=== PATIENT | female | born 1945 | race Caucasian/White ===

== ENCOUNTER → 2020-07-26 12:09 | Outpatient (CLI) | payer MEDICARE, SELFPAY ==
[2020-07-26 13:00] LABS: Absolute Lymphocyte Count 1.39 X10^3/uL (0.83-4.51); Absolute Neutrophil Count 4.9 X10^3/uL (2.0-7.7); Basophil# 0.05 X10^3/uL; Basophil% 0.7 % (0-1); Eosinophil# 0.06 X10^3/uL; Eosinophils% 0.9 % (0-5); Hematocrit 41.6 % (37-47); Hemoglobin 13.3 g/dL (12.0-15.0); Lymphocyte # 1.39 X10^3/ul (0.83-4.51); Lymphocyte % 20.2 % (19-41); Mean Corpuscular Hgb 29.7 pg (27.0-32.0); Mean Corpuscular Volume 92.9 fL (81-99); Mean Platelet Vol. 10.1 fl (6.2-12.0); Monocyte# 0.49 X10^3/uL; Monocyte% 7.1 % (0-10); NRBC Flagged by Analyzer 0 % (0-5); Neutrophil # 4.87 X10^3/uL (2.7-7.7); Platelet Count 252 K/mm3 (150-450); RBC Distribution Width CV 11.9 % (11.6-14.6); Red Blood Count 4.48 M/mm3 (4.2-5.4); White Blood Count 6.9 K/mm3 (4.4-11.0)
[2020-07-26 13:31] LABS: ALB/GLOB Ratio 1.2 RATIO (0.9-2.4); AST(SGOT) 16 U/L (15-37); Alanine Aminotransfer ALT/SGPT 22 U/L (13-56); Albumin, Serum 4.2 g/dL (3.2-5.0); Alkaline Phosphatase 68 U/L (45-117); Anion Gap 5 (5-15); BUN 11 mg/dL (7-18); BUN/Creat Ratio 16.2 RATIO (10-20); Calcium,Total 9.2 mg/dL (8.5-10.1); Chloride 103 mmol/L (98-107); Cholesterol 198 mg/dL (200); Creatinine, Serum 0.68 mg/dL (0.55-1.02); EST Glomerular Filtration Rate 90 mL/min (>60); Est Glom Filt Rate - Afr Amer 109 mL/min (>60); Globulin 3.5 g/dL (2.2-4.2); Glucose 96 mg/dL (74-106); High Density Lipoprotein 86 mg/dL; Potassium 3.4 mmol/L (3.5-5.1); Protein, Total 7.7 g/dL (6.4-8.2); Sodium Level 139 mmol/L (136-145); Thyroid Stim Hormone (TSH) 0.88 uIU/mL (0.358-3.74); Triglycerides 49 mg/dL; Very Low Density Lipoprotein 10 mg/dL (5-40)
[2020-07-26 14:02] LABS: Hepatitis C Antibody Non-Reactive (Nonreactive); Vitamin D,25 Hydroxy 10.9 ng/mL
== END ==
PROVIDERS: PCP Family Medicine Geriatric Medicine; Visit Provider Family Medicine Geriatric Medicine
DX: E55.9 Vitamin D deficiency, unspecified (principal); I10 Essential (primary) hypertension; Z13.89 Encounter for screening for other disorder
CPT/HCPCS: 36415; 80053; 80061; 82306; 84443; 85025; 86803

== ENCOUNTER → 2020-08-02 10:10 | Outpatient (CLI) | payer MEDICARE, SELFPAY ==
[2020-08-02 12:39] LABS: Anion Gap 6 (5-15); BUN 13 mg/dL (7-18); BUN/Creat Ratio 16.5 RATIO (10-20); Calcium,Total 9.2 mg/dL (8.5-10.1); Chloride 103 mmol/L (98-107); Creatinine, Serum 0.79 mg/dL (0.55-1.02); EST Glomerular Filtration Rate 76 mL/min (>60); Est Glom Filt Rate - Afr Amer 92 mL/min (>60); Glucose 131 mg/dL (74-106); Potassium 3.5 mmol/L (3.5-5.1); Sodium Level 140 mmol/L (136-145)
== END ==
PROVIDERS: PCP Family Medicine Geriatric Medicine; Visit Provider Family Medicine Geriatric Medicine
DX: E87.6 Hypokalemia (principal)
CPT/HCPCS: 36415; 80048

== ENCOUNTER → 2020-08-09 08:14 | Outpatient (CLI) | payer MEDICARE, SELFPAY ==
--- NOTE | 2020-08-09 08:18 | AAVD_ITS ---
Reason For Study: AAA w/o rupture Aorta Measurements Aorta Doppler Measurements Proximal aorta measures2.04 x 2.00cm. in cross- Peak systolic flow velocities within the proximal sectional axis. aorta measure 94.1 cm/sec. Proximal aorta measures2.04cm. in longitudinal Peak systolic flow velocities within the mid aorta axis. measure 76.9 cm/sec. Mid aorta measures1.93 x 1.94cm. in cross- Peak systolic flow velocities within the distal sectional axis. aorta measure 84.2 cm/sec. Mid aorta measures1.92cm. in longitudinal axis. Distal aorta measures1.75 x 1.74cm. in cross- sectional axis. Distal aorta measures1.72cm. in longitudinal axis. Left Iliac Artery Left iliac artery measures 1.04 x 1.08 cm. in the cross-sectional axis. Left iliac artery measures 1.04 cm. in the longitudinal axis. Peak systolic velocity in the left iliac artery measures 103.4 cm/sec. Right Iliac Artery Right iliac artery measures 1.11 x 1.13 cm. in the cross-sectional axis. Right iliac artery measures 1.10 cm. in the longitudinal axis. Peak systolic velocity in the right iliac artery measures 79.3 cm/sec. Procedure Aorta IVC Iliac vasculature or bypass grafts 43247. Exam performed in department. VL/Abd Aortic/IVC Duplex scan Interpretation Summary The intra-abdominal aorta appears normal in size bilaterally, without evidence of aneurysmal dilatation. The iliac arteries appear normal in caliber bilaterally. The intra- abdominal aorta and iliac arteries are patent, demonstrating normal, pulsatile arterial flow and no rmal peak systolic velocities. Ordering Physician: Oskar Kinsey Referring Physician: Oskar Kinsey Chi Performed By: Kanika Lafleur RVT
== END ==
PROVIDERS: PCP Family Medicine Geriatric Medicine; Referring Provider Family Medicine Geriatric Medicine; Visit Provider Family Medicine Geriatric Medicine
DX: I71.4 Abdominal aortic aneurysm, without rupture (principal)
CPT/HCPCS: 93978

== ENCOUNTER → 2020-08-10 08:14 | Outpatient (CLI) | payer MEDICARE, SELFPAY ==
--- NOTE | 2020-08-10 08:17 | BD_ITS ---
STUDY: DUAL ENERGY X-RAY ABSORPTIOMETRY / DXA REASON FOR EXAM: Female, 74 years old. [id number]. The patient is postmenopausal. TECHNIQUE: Bone Mineral Density (BMD) measurements of lumbar spine and bilateral hips were obtained. COMPARISON: None. FINDINGS: Lumbar Spine (L1-L4): g/cm2 (0.890) / T-score (-2.4) / Z-score (-0.7) Findings are suggestive of osteopenia with a low fracture risk. Left Femur Total: g/cm2 (0.744) / T-score (-2.1) / Z-score (-0.5) Left Femoral Neck: g/cm2 (0.763) / T-score (-2.0) / Z-score (-0.2) Right Femur Total: g/cm2 (0.759) / T-score (-2.0) / Z-score (-0.4) Right Femoral Neck: g/cm2 (0.758) / T-score (-2.0) / Z-score (0.2) BD/Dexa Bone Density Study IMPRESSION: The patient is considered osteopenic as outlined below according to World Lenin Organization (WHO) criteria with a high fracture risk. Reference Information: The T-score is the number of standard deviations above or below the standard which is normal for young adults at their peak bone mineral density. The World Health Organization (WHO) interprets the T-scores as follows: Above -1 Normal bone density Between -1 and -2.5 Osteopenia Equal to / or below -2.5 Osteoporosis As a practical clinical guideline, osteopenia may be graded as follows: Mild -1 through -1.5 Moderate -1.6 through -2.0 Severe -2.1 through -2.4 The Z-score is the number of standard deviations above or below age-matched controls. A Z-score of less than -1.5 would be considered abnormal. References: 1. NIH Osteoporosis and Related Bone Diseases www osteo.org 2. International Society for Clinical Densitometry www iscd.org 3. National Osteoporosis Foundation www nof.org Electronically Signed: Arnulfo Gray MD at 12:54 EDT , Service support ,
--- NOTE | 2020-08-10 08:17 | BI_ITS ---
MAMMOGRAPHY - BILATERAL SCREENING REASON FOR EXAM: Female, 74 years old. Routine annual screening examination. PERTINENT HISTORY: Non-contributory. TECHNIQUE: Digital bilateral breast clayton (3D mammographic acquisition) in the CC and MLO projections. 2-D mediolateral oblique (MLO) and craniocaudad (CC) views of both breasts were obtained. CAD: Full Field Digital Mammography with Computer Added Detection was performed. COMPARISON: Comparison is made with prior outside examination dated 03/09/2019. FINDINGS: Breast Composition: The breasts are heterogeneously dense, which may obscure small masses. There are no dominant masses or suspicious calcifications. No other significant abnormalities are identified. There has been no significant change since the prior study. BI/SCRN MAMM (CAD)W/CLAYTON BILAT IMPRESSION: Stable bilateral screening mammogram. Yearly follow-up mammogram recommended. (A) ASSESSMENT CATEGORY: BIRADS Category 1: Negative. A letter regarding these results will be sent to the patient by the facility within 30 days. Approximately 10% of breast cancers are not detected by mammography. A normal mammogram should not delay biopsy of a clinically suspicious abnormality. [id number] Electronically Signed: Arnulfo Gray MD at 9:58 EDT , Service support ,
== END ==
PROVIDERS: PCP Family Medicine Geriatric Medicine; Referring Provider Family Medicine Geriatric Medicine; Visit Provider Family Medicine Geriatric Medicine
DX: Z78.0 Asymptomatic menopausal state (principal); Z12.31 Encounter for screening mammogram for malignant neoplasm of breast
CPT/HCPCS: 77063; 77067; 77080

== ENCOUNTER → 2020-09-15 14:02 | Outpatient (CLI) | payer MEDICARE, SELFPAY ==
[2020-09-15 15:42] LABS: Absolute Neutrophil Count 3.8 X10^3/uL (2.0-7.7); Basophil# 0.06 X10^3/uL; Eosinophils% 1.7 % (0-5); Hematocrit 38.3 % (37-47); Hemoglobin 12.6 g/dL (12.0-15.0); Lymphocyte % 22.7 % (19-41); Mean Corp Hgb Conc 32.9 g/dL (32-36); Mean Corpuscular Hgb 30.4 pg (27.0-32.0); Mean Corpuscular Volume 92.5 fL (81-99); Mean Platelet Vol. 10.3 fl (6.2-12.0); Monocyte# 0.45 X10^3/uL; Monocyte% 7.9 % (0-10); NRBC Flagged by Analyzer 0 % (0-5); Neutrophil # 3.79 X10^3/uL (2.7-7.7); Neutrophil % 66.4 % (47-70); Platelet Count 263 K/mm3 (150-450); RBC Distribution Width CV 12.1 % (11.6-14.6); RBC Distribution Width SD 41.3 fl (35.1-43.9); Red Blood Count 4.14 M/mm3 (4.2-5.4); White Blood Count 5.7 K/mm3 (4.4-11.0)
[2020-09-15 15:58] LABS: Anion Gap 6 (5-15); BUN 10 mg/dL (7-18); BUN/Creat Ratio 14.8 RATIO (10-20); Calcium,Total 9.1 mg/dL (8.5-10.1); Chloride 102 mmol/L (98-107); Creatinine, Serum 0.68 mg/dL (0.55-1.02); EST Glomerular Filtration Rate 91 mL/min (>60); Est Glom Filt Rate - Afr Amer 110 mL/min (>60); Glucose 103 mg/dL (74-106); Potassium 3.7 mmol/L (3.5-5.1); Sodium Level 139 mmol/L (136-145)
== END ==
PROVIDERS: PCP Family Medicine Geriatric Medicine; Visit Provider Family Medicine Geriatric Medicine
DX: E87.6 Hypokalemia (principal)
CPT/HCPCS: 36415; 80048; 85025

== ENCOUNTER → 2020-09-22 09:49 | Outpatient (CLI) | payer MEDICARE, SELFPAY ==
[2020-09-22 12:41] LABS: Anion Gap 7 (5-15); BUN 13 mg/dL (7-18); BUN/Creat Ratio 17.9 RATIO (10-20); Calcium,Total 9.1 mg/dL (8.5-10.1); Chloride 98 mmol/L (98-107); Creatinine, Serum 0.73 mg/dL (0.55-1.02); EST Glomerular Filtration Rate 83 mL/min (>60); Est Glom Filt Rate - Afr Amer 101 mL/min (>60); Glucose 93 mg/dL (74-106); Potassium 3.7 mmol/L (3.5-5.1); Sodium Level 137 mmol/L (136-145)
== END ==
PROVIDERS: PCP Family Medicine Geriatric Medicine; Visit Provider Family Medicine Geriatric Medicine
DX: I10 Essential (primary) hypertension (principal)
CPT/HCPCS: 36415; 80048

== ENCOUNTER → 2020-10-26 09:22 | Outpatient (CLI) | payer MEDICARE, SELFPAY ==
[2020-10-26 12:41] LABS: Absolute Lymphocyte Count 1.69 X10^3/uL (0.83-4.51); Absolute Neutrophil Count 3.4 X10^3/uL (2.0-7.7); Basophil# 0.06 X10^3/uL; Eosinophil# 0.12 X10^3/uL; Eosinophils% 2.1 % (0-5); Hematocrit 39.3 % (37-47); Lymphocyte # 1.69 X10^3/ul (0.83-4.51); Lymphocyte % 29.5 % (19-41); Mean Corp Hgb Conc 33.1 g/dL (32-36); Mean Corpuscular Hgb 30.9 pg (27.0-32.0); Mean Corpuscular Volume 93.3 fL (81-99); Mean Platelet Vol. 10.1 fl (6.2-12.0); Monocyte# 0.45 X10^3/uL; Monocyte% 7.9 % (0-10); NRBC Flagged by Analyzer 0 % (0-5); Neutrophil # 3.39 X10^3/uL (2.7-7.7); Neutrophil % 59.2 % (47-70); Platelet Count 277 K/mm3 (150-450); RBC Distribution Width SD 41.4 fl (35.1-43.9); Red Blood Count 4.21 M/mm3 (4.2-5.4); White Blood Count 5.7 K/mm3 (4.4-11.0)
[2020-10-26 13:18] LABS: ALB/GLOB Ratio 1.2 RATIO (0.9-2.4); AST(SGOT) 20 U/L (15-37); Alanine Aminotransfer ALT/SGPT 30 U/L (13-56); Alkaline Phosphatase 53 U/L (45-117); Anion Gap 6 (5-15); BUN 13 mg/dL (7-18); BUN/Creat Ratio 20.3 RATIO (10-20); Calcium,Total 8.9 mg/dL (8.5-10.1); Chloride 98 mmol/L (98-107); Cholesterol 185 mg/dL (200); Creatinine, Serum 0.64 mg/dL (0.55-1.02); EST Glomerular Filtration Rate 97 mL/min (>60); Est Glom Filt Rate - Afr Amer 117 mL/min (>60); Globulin 3.2 g/dL (2.2-4.2); Glucose 84 mg/dL (74-106); High Density Lipoprotein 71 mg/dL; Potassium 3.8 mmol/L (3.5-5.1); Protein, Total 7.2 g/dL (6.4-8.2); Sodium Level 135 mmol/L (136-145); Thyroid Stim Hormone (TSH) 1.11 uIU/mL (0.358-3.74); Triglycerides 67 mg/dL; Very Low Density Lipoprotein 13 mg/dL (5-40)
[2020-10-26 13:21] LABS: Vitamin D,25 Hydroxy 35.3 ng/mL
== END ==
PROVIDERS: PCP Family Medicine Geriatric Medicine; Visit Provider Family Medicine Geriatric Medicine
DX: I10 Essential (primary) hypertension (principal); E78.5 Hyperlipidemia, unspecified; E55.9 Vitamin D deficiency, unspecified
CPT/HCPCS: 36415; 80053; 80061; 82306; 84443; 85025

== ENCOUNTER → 2021-01-25 10:25 | Outpatient (CLI) | payer MEDICARE, SELFPAY ==
[2021-01-25 12:27] LABS: Absolute Lymphocyte Count 1.44 X10^3/uL (0.83-4.51); Absolute Neutrophil Count 4.7 X10^3/uL (2.0-7.7); Basophil# 0.06 X10^3/uL; Basophil% 0.9 % (0-1); Eosinophil# 0.14 X10^3/uL; Eosinophils% 2.1 % (0-5); Hematocrit 36.9 % (37-47); Hemoglobin 12.2 g/dL (12.0-15.0); Lymphocyte # 1.44 X10^3/ul (0.83-4.51); Lymphocyte % 21.2 % (19-41); Mean Corp Hgb Conc 33.1 g/dL (32-36); Mean Corpuscular Hgb 31.5 pg (27.0-32.0); Mean Corpuscular Volume 95.3 fL (81-99); Monocyte# 0.47 X10^3/uL; Monocyte% 6.9 % (0-10); NRBC Flagged by Analyzer 0 % (0-5); Neutrophil # 4.67 X10^3/uL (2.7-7.7); Neutrophil % 68.6 % (47-70); Platelet Count 277 K/mm3 (150-450); RBC Distribution Width CV 12.5 % (11.6-14.6); RBC Distribution Width SD 43.8 fl (35.1-43.9); Red Blood Count 3.87 M/mm3 (4.2-5.4); White Blood Count 6.8 K/mm3 (4.4-11.0)
[2021-01-25 12:54] LABS: Vitamin D,25 Hydroxy 26.6 ng/mL
[2021-01-25 13:18] LABS: AST(SGOT) 21 U/L (15-37); Alanine Aminotransfer ALT/SGPT 31 U/L (13-56); Albumin, Serum 3.7 g/dL (3.2-5.0); Alkaline Phosphatase 60 U/L (45-117); Anion Gap 7 (5-15); BUN 18 mg/dL (7-18); BUN/Creat Ratio 23.1 RATIO (10-20); Calcium,Total 9.3 mg/dL (8.5-10.1); Chloride 100 mmol/L (98-107); Cholesterol 185 mg/dL (200); Creatinine, Serum 0.78 mg/dL (0.55-1.02); EST Glomerular Filtration Rate 77 mL/min (>60); Est Glom Filt Rate - Afr Amer 93 mL/min (>60); Globulin 3.7 g/dL (2.2-4.2); Glucose 147 mg/dL (74-106); High Density Lipoprotein 69 mg/dL; Potassium 3.5 mmol/L (3.5-5.1); Protein, Total 7.4 g/dL (6.4-8.2); Sodium Level 136 mmol/L (136-145); Thyroid Stim Hormone (TSH) 0.88 uIU/mL (0.358-3.74); Triglycerides 136 mg/dL; Very Low Density Lipoprotein 27 mg/dL (5-40)
[2021-01-26 14:13] LABS: Hemoglobin A1c 5.2 % (3.8-5.6)
== END ==
PROVIDERS: PCP Family Medicine Geriatric Medicine; Visit Provider Family Medicine Geriatric Medicine
DX: E55.9 Vitamin D deficiency, unspecified (principal); E78.5 Hyperlipidemia, unspecified; R73.9 Hyperglycemia, unspecified; I10 Essential (primary) hypertension
CPT/HCPCS: 36415; 80053; 80061; 82306; 83036; 84443; 85025

== ENCOUNTER 2021-04-25 10:22 | Outpatient (CLI) | payer MEDICARE, SELFPAY ==
[2021-04-25 12:16] LABS: Absolute Lymphocyte Count 1.78 X10^3/uL (0.83-4.51); Absolute Neutrophil Count 3.7 X10^3/uL (2.0-7.7); Basophil# 0.06 X10^3/uL; Eosinophil# 0.11 X10^3/uL; Eosinophils% 1.8 % (0-5); Hematocrit 38.4 % (37-47); Lymphocyte # 1.78 X10^3/ul (0.83-4.51); Mean Corp Hgb Conc 33.9 g/dL (32-36); Mean Corpuscular Hgb 31.3 pg (27.0-32.0); Mean Corpuscular Volume 92.5 fL (81-99); Monocyte# 0.45 X10^3/uL; Monocyte% 7.3 % (0-10); NRBC Flagged by Analyzer 0 % (0-5); Neutrophil % 60.4 % (47-70); Platelet Count 280 K/mm3 (150-450); RBC Distribution Width CV 11.9 % (11.6-14.6); RBC Distribution Width SD 40.5 fl (35.1-43.9); Red Blood Count 4.15 M/mm3 (4.2-5.4); White Blood Count 6.1 K/mm3 (4.4-11.0)
[2021-04-25 12:30] LABS: Vitamin D,25 Hydroxy 21.7 ng/mL
[2021-04-25 13:08] LABS: ALB/GLOB Ratio 1.2 RATIO (0.9-2.4); AST(SGOT) 20 U/L (15-37); Alanine Aminotransfer ALT/SGPT 28 U/L (13-56); Alkaline Phosphatase 55 U/L (45-117); Anion Gap 6 (5-15); BUN 15 mg/dL (7-18); BUN/Creat Ratio 19.1 RATIO (10-20); Calcium,Total 8.8 mg/dL (8.5-10.1); Chloride 100 mmol/L (98-107); Cholesterol 201 mg/dL (200); Creatinine, Serum 0.79 mg/dL (0.55-1.02); EST Glomerular Filtration Rate 76 mL/min (>60); Est Glom Filt Rate - Afr Amer 92 mL/min (>60); Globulin 3.4 g/dL (2.2-4.2); Glucose 112 mg/dL (74-106); High Density Lipoprotein 68 mg/dL; Potassium 3.6 mmol/L (3.5-5.1); Protein, Total 7.4 g/dL (6.4-8.2); Sodium Level 136 mmol/L (136-145); Thyroid Stim Hormone (TSH) 0.91 uIU/mL (0.358-3.74); Triglycerides 77 mg/dL; Very Low Density Lipoprotein 15 mg/dL (5-40)
== END 2021-04-25 23:59 | disposition home or self-care (01) ==
LOC: POLAB3 10:23
PROVIDERS: PCP Family Medicine Geriatric Medicine; Visit Provider Family Medicine Geriatric Medicine
DX: E55.9 Vitamin D deficiency, unspecified (principal); E78.5 Hyperlipidemia, unspecified; I10 Essential (primary) hypertension
CPT/HCPCS: 36415; 80053; 80061; 82306; 84443; 85025

== ENCOUNTER → 2021-08-01 | Outpatient (CLI) | payer MEDICARE, SELFPAY ==
[2021-08-01 12:20] LABS: Absolute Lymphocyte Count 1.63 X10^3/uL (0.83-4.51); Absolute Neutrophil Count 3.9 X10^3/uL (2.0-7.7); Basophil# 0.04 X10^3/uL; Basophil% 0.6 % (0-1); Eosinophil# 0.16 X10^3/uL; Eosinophils% 2.5 % (0-5); Hematocrit 37.7 % (37-47); Hemoglobin 12.4 g/dL (12.0-15.0); Lymphocyte # 1.63 X10^3/ul (0.83-4.51); Lymphocyte % 25.8 % (19-41); Mean Corp Hgb Conc 32.9 g/dL (32-36); Mean Corpuscular Hgb 30.8 pg (27.0-32.0); Mean Corpuscular Volume 93.8 fL (81-99); Mean Platelet Vol. 9.9 fl (6.2-12.0); Monocyte# 0.52 X10^3/uL; Monocyte% 8.2 % (0-10); NRBC Flagged by Analyzer 0 % (0-5); Neutrophil # 3.94 X10^3/uL (2.7-7.7); Neutrophil % 62.4 % (47-70); Platelet Count 283 K/mm3 (150-450); Red Blood Count 4.02 M/mm3 (4.2-5.4); White Blood Count 6.3 K/mm3 (4.4-11.0)
[2021-08-01 12:46] LABS: Vitamin D,25 Hydroxy 34.1 ng/mL
[2021-08-01 12:53] LABS: ALB/GLOB Ratio 1.1 RATIO (0.9-2.4); AST(SGOT) 17 U/L (15-37); Alanine Aminotransfer ALT/SGPT 20 U/L (13-56); Albumin, Serum 3.8 g/dL (3.2-5.0); Alkaline Phosphatase 59 U/L (45-117); Anion Gap 4 (5-15); BUN 18 mg/dL (7-18); Calcium,Total 9.6 mg/dL (8.5-10.1); Chloride 104 mmol/L (98-107); Cholesterol 205 mg/dL (200); Creatinine, Serum 0.78 mg/dL (0.55-1.02); EST Glomerular Filtration Rate 76 mL/min (>60); Est Glom Filt Rate - Afr Amer 92 mL/min (>60); Globulin 3.6 g/dL (2.2-4.2); Glucose 106 mg/dL (74-106); High Density Lipoprotein 69 mg/dL; Potassium 3.5 mmol/L (3.5-5.1); Protein, Total 7.4 g/dL (6.4-8.2); Sodium Level 139 mmol/L (136-145); Thyroid Stim Hormone (TSH) 1.11 uIU/mL (0.358-3.74); Triglycerides 70 mg/dL; Very Low Density Lipoprotein 14 mg/dL (5-40)
== END | disposition home or self-care (01) ==
LOC: POLAB3 10:31
PROVIDERS: PCP Family Medicine Geriatric Medicine; Visit Provider Family Medicine Geriatric Medicine
DX: E55.9 Vitamin D deficiency, unspecified (principal); E78.5 Hyperlipidemia, unspecified; I10 Essential (primary) hypertension
CPT/HCPCS: 36415; 80053; 80061; 82306; 84443; 85025

== ENCOUNTER → 2021-10-30 | Outpatient (CLI) | payer MEDICARE, SELFPAY ==
--- NOTE | 2021-10-30 15:51 | CT_ITS ---
STUDY: CT Abdomen And Pelvis W/ Contrast Injection 10/30/2021 7:42 PM REASON FOR EXAM: Female, 76 years old. Low ABDOMINAL PAIN ABD PAIN TECHNIQUE: Transaxial images were obtained with oral contrast, and with IV Gastrografin and amp; 100mL Isovue-370 intravenous contrast. Individualized dose optimization techniques were used for this CT. COMPARISON: None. FINDINGS: The visualized lung bases are unremarkable. The visualized portions of the heart are within normal limits. 20 mm hypodensity in the left lobe of the liver. Small hypodense lesion seen in the left lobe of the liver. ACR White Paper guidelines (Aggie, et al. JACR 2017; 14(11):1680-6773.) suggest no follow-up is necessary. Unremarkable gallbladder and extrahepatic biliary system. Unremarkable spleen. 9 mm calcified splenic artery aneurysm. Unremarkable pancreas. Unremarkable bilateral adrenal glands. No acute findings of the right kidney. No acute findings of the left kidney. Unremarkable visualized stomach. Unremarkable small intestine. Severe colitis of the rectosigmoid colon. There is air in the patient''s vaginal cuff and possible air in the endometrium. This can represent a colovaginal fistula. There is non-visualization of the appendix. There are calcifications of the abdominal aorta. This is consistent for atherosclerotic disease. There is no abdominal aortic aneurysm. Unremarkable inferior vena cava. Subcentimeter mesenteric lymph nodes. Unremarkable urinary bladder. Unremarkable abdominal wall. There are diffuse degenerative changes of the visualized lumbar spine. CT/Abdomen/Pelvis WITH Contrast IMPRESSION: (NOT LISTED IN ORDER OF SIGNIFICANCE) Severe colitis of the rectosigmoid colon. There is air in the patient''s vaginal cuff and possible air in the endometrium. This can represent a colovaginal fistula. Other findings as above. Electronically Signed: Gokul Whitman MD at 19:45 EDT ,
[2021-10-30 18:30] LABS: CREATININE FINGERSTICK < 0.9 mg/dL (0.55-1.02); EGFR FINGERSTICK > 60.0000 mL/min (>60)
== END | disposition home or self-care (01) ==
PROVIDERS: PCP Family Medicine Geriatric Medicine; Visit Provider Family Medicine Geriatric Medicine
DX: R10.9 Unspecified abdominal pain (principal)
CPT/HCPCS: 74177; 87086; 87088; 87186; Q9967

== ENCOUNTER 2021-11-02 11:38 | Inpatient (IN) | payer MEDICARE, SELFPAY ==
[2021-11-02] VITALS (11 sets, daily range): BP systolic 140–183; BP diastolic 70–80; PULSE 68–102; RESP 16–18; TEMP 36.1–36.9; O2SAT 96–99; BMI 22.1; BMI 22.3
--- NOTE | 2021-11-02 11:57 | CT_ITS ---
STUDY: CT ABDOMEN AND PELVIS WITH CONTRAST REASON FOR EXAM: Female, 76 years old. Abdominal pain. Recent diagnosis of colitis. RADIATION DOSAGE (If Supplied By Facility): CTDIvol = ( 7.63 ) mGy, DLP = ( 291.96 ) mGycm TECHNIQUE: Transaxial images were obtained from the dome of the diaphragm to the symphysis pubis without oral contrast. IV 100mL Isovue-300 was administered. Sagittal and coronal images were reconstructed. Individualized dose optimization techniques were used for this CT. COMPARISON: Comparison is made with prior study dated 10/30/2021. FINDINGS: Minimal degree of increased markings at the lung bases suggestive of linear atelectasis. The visualized portions of the heart are within normal limits. There is a 1.7 cm x 2.1 cm cyst in the left lobe of the liver. This is unchanged. Normal gallbladder and extrahepatic biliary system. Normal spleen. 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 Normal pancreas. Normal bilateral adrenal glands. Normal right kidney. Normal left kidney. There is a small hiatal hernia. Normal small intestine. Large amount of fecal material is seen in the right hemicolon. Persistent diffuse thickening of the rectosigmoid colon with increased markings in the surrounding peritoneal fat suggestive of a colitis. This is unchanged. Once again, a small amount of air is seen within the vagina and vaginal cuff. A colovaginal fistula should be ruled out. The appendix is visualized and appears normal. There is scattered atherosclerotic calcification of the abdominal aorta, without a demonstrated aneurysm. Normal inferior vena cava. Normal retroperitoneum. Normal urinary bladder. Stable 2.7 cm cyst in the left ovary. Normal abdominal wall. There are diffuse degenerative changes of the visualized lumbar spine. CT/Abdomen/Pelvis W IV Cont ONLY IMPRESSION: Stable findings suggestive of colitis of the rectosigmoid colon. Small amount of air is seen within the vagina and vaginal cuff. A core vaginal fistula should be ruled out. Stable 2.7 cm left ovarian cyst. Electronically Signed: Arnulfo Gray MD at 13:22 EDT ,
--- NOTE | 2021-11-02 12:00 | EDS_ITS ---
HPI HPI - GI History of Present Illness Chief Complaint: Abd Pain Detail of Chief Complaint: Abdominal pain x10 days Informant: patient Narrative Narrative: Patient presents the emergency department complaint of abdominal pain x10 days. Patient was seen by her primary care physician and had a CT scan of the abdomen pelvis on October 30 that showed severe colitis of the sigmoid colon with questionable colovaginal fistula due to some air in the vaginal cuff and endometrium. Patient denies any discharge or drainage from her vagina. She is complaining of continued pain despite being on antibiotics. She denies fever. She denies blood in her stool. Patient states the stool is watery and mucousy. Patient was sent to the ER by her primary care physician due to a failed outpatient therapy. Prior similar symptoms: No PFSH PFSH Medical History (Updated 11/02/21 @ 15:[address] Reagan Sorensen, ) Colitis Home Medications amoxicillin 875 mg-potassium clavulanate 125 mg tablet 1 tab PO BID 11/02/21 [History Last Taken Unknown] cholecalciferol (vitamin D3) 25 mcg (1,000 unit) tablet (Vitamin D3) 25 mcg PO DAILY 11/02/21 [History Last Taken Unknown] metoprolol tartrate 25 mg tablet 12.5 mg PO BID 11/02/21 [History Last Taken Unknown] multivitamin 1 tab PO DAILY 11/02/21 [History Last Taken Unknown] valsartan 320 mg-hydrochlorothiazide 12.5 mg tablet 1 tab PO DAILY 11/02/21 [History Last Taken Unknown] Allergy/AdvReac Type Severity Reaction Status Date / Time No Known Allergies Allergy Verified 11/02/21 11:39 Social History Smoking Status: Never smoker ROS ROS ED Review of Systems ROS Unobtainable: other Constitutional Constitutional ED: Reports lethargy; Denies chills, fever(s), sweats or weight loss Eyes Eyes: Denies blurry vision, change in vision or diplopia ENT ENT ED: Denies rhinorrhea or sore throat Cardiovascular Cardiovascular: Denies chest pain, orthopnea or racing heartbeat Respiratory/Chest Respiratory/Chest: Reports dyspnea and dyspnea on exertion; Denies cough, orthopnea or sputum Gastrointestinal Gastrointestinal: Reports abdominal pain; Denies diarrhea, nausea or vomiting Genitourinary Genitourinary ED: Denies dysuria, hematuria or urinary frequency Musculoskeletal Musculoskeletal: Denies arthralgias, back pain, myalgias or neck pain Integumentary Denies abscess, Abrasions or rash Neurologic Neurologic: Denies headache(s) or weakness Psychiatric Psychiatric: Denies anxiety, depression or suicidal thoughts Endocrine Endocrinology: Denies polydipsia, polyphagia or polyuria Hematologic/Lymphatic Hematologic/Lymphatic: Denies easy bleeding, easy bruising or lymphadenopathy Allergic/Immunologic Allergic/Immunologic ED: Denies mouth swelling, tongue swelling or urticaria EXAM Physical Exam Const Vital Signs: 11/02/21 11:40 11/02/21 13:48 11/02/21 14:41 Temperature 96.9 F L 97.6 F L Temperature Source Temporal Oral Pulse Rate 102 H 89 92 Respiratory Rate 17 18 16 Blood Pressure 141/70 H 163/75 H 140/71 H Blood Pressure Mean 93 104 94 Pulse Ox 98 99 99 Oxygen Delivery Method Room Air Room Air Room Air Positive well nourished and well developed General Appearance ED: well developed and NAD HEENT Reports TM's clear and moist mucous membranes normocephalic and atraumatic; Negative for trauma or tenderness Tympanic Membrane ED: Yes TM's clear Eyes PERRL and EOMs intact bilaterally General Eye ED: Negative for pale conjunctiva or scleral icterus Neck no lymphadenopathy, supple and no JVD General: Negative for tenderness Chest Wall inspection of chest normal and palpation of chest normal Chest: Negative for tenderness Resp normal respiratory effort and clear to auscultation bilaterally Effort and Inspection: Negative for respiratory distress or pain with movement Auscultation: Negative for rhonchi, wheezes or diminished lung sounds Cardio regular rate, regular rhythm, S1 normal heart sound, S2 normal heart sound and no murmurs Peripheral Pulses: pulses 2+ throughout GI normal to inspection, nondistended, normoactive bowel sounds, soft to palpation, non-distended and no masses; Negative for non-tender GI Narrative: Patient with slight distention of the lower abdomen with tenderness to palpation over left lower quadrant with some guarding. There is no rebound, rigidity, or peritoneal signs. Back/Spine no CVA tenderness and no thoracic nor lumbar tenderness Extremity normal to inspection General Extremety ED: Negative for edema General Extremity: Negative for edema Neuro oriented x3, CN's II-XII intact bilaterally, no sensory deficits noted and gait normal Sensorium / Orientation: awake, alert, oriented to person, oriented to place and oriented to time Motor Exam: strength 5/5 throughout and strength abnormal Psych mental status grossly normal Skin no rashes or lesions noted and no wounds MDM MDM MDM Narrative Medical decision making narrative: IV line established on arrival. Lab work-up shows a white count 11.7 with a hemoglobin of 11. Chemistries unremarkable. Lactate was 0.8. Repeat CT scan of the abdomen pelvis was obtained which showed stable findings suggestive of colitis of the rectosigmoid colon with small amount of air seen within the vagina and vaginal cuff a colovaginal fistula should be ruled out. Discussed case with general surgeon on-call Dr. Lawler who presented to the emergency department to evaluate patient. Patient will be started on Zosyn IV. Patient will be admitted for definitive care. Lab Data Attestation: I reviewed the patient's lab results. Labs: Laboratory Results - last 24 hr 11/02/21 11/02/21 11/02/21 12:10 12:10 12:10 WBC 11.7 H RBC 3.68 L Hgb 11.0 L Hct 33.2 L MCV 90.2 MCH 29.9 MCHC 33.1 RDW Std Deviation 39.1 RDW Coeff of Annalee 11.8 Plt Count 472 H MPV 8.8 Immature Gran % (Auto) 0.700 Neut % (Auto) 78.5 H Lymph % (Auto) 11.8 L [place] % (Auto) 6.4 Eos % (Auto) 2.0 Baso % (Auto) 0.6 Absolute Neuts (auto) 9.2 H Absolute Lymphs (auto) 1.38 Nucleated RBC % 0 Sodium 134 L Potassium 3.4 L Chloride 100 Carbon Dioxide 29.0 Anion Gap 5 BUN 7 Creatinine 0.64 Estim Creat Clear Calc 49.79 Est GFR (MDRD) Af Amer 117 Est GFR (MDRD) Non-Af 96 BUN/Creatinine Ratio 10.9 Glucose 118 H Lactic Acid 0.8 Calcium 9.6 Radiography Diagnostic Testing: Clinical Impression(s) from Imaging Studies Abdomen/Pelvis CT 11/02/21 11:57 IMPRESSION: Stable findings suggestive of colitis of the rectosigmoid colon. Small amount of air is seen within the vagina and vaginal cuff. A core vaginal fistula should be ruled out. Stable 2.7 cm left ovarian cyst. Electronically Signed: Arnulfo Gray MD at 13:22 EDT , Discharge Plan Triage Chief Complaint: Abd Pain ED Provider: Reagan Sorensen Dx/Rx/DC Orders Clinical Impression: Abdominal pain, Colitis, History of hypertension Prescriptions: No Action multivitamin [Multi-Day] Tablet 1 tab PO DAILY amoxicillin-pot clavulanate 875-125 mg tablet 1 tab PO BID Label Comments: TAKE 1 TABLET BY MOUTH TWICE DAILY FOR 7 DAYS metoprolol tartrate 25 mg tablet 12.5 mg PO BID Label Comments: TAKE 1/2 (ONE-HALF) TABLET BY MOUTH TWICE DAILY FOR 30 DAYS (STOP LOSARTAN) valsartan-hydrochlorothiazide 320-12.5 mg tablet 1 tab PO DAILY cholecalciferol (vitamin D3) [Vitamin D3] 25 mcg (1,000 unit) Tablet 25 mcg PO DAILY Primary Care Provider: Oskar Kinsey Chi Referrals: Oskar Kinsey Chi, MD [Primary Care Provider] - Disposition Disposition: Acute Care Hospital [facility]
[2021-11-02] MEDS: 0.9% Normal Saline 1,000 ML 125 ML IV (12:17)
[2021-11-02 12:36] LABS: Absolute Lymphocyte Count 1.38 X10^3/uL (0.83-4.51); Absolute Neutrophil Count 9.2 X10^3/uL (2.0-7.7); Basophil# 0.07 X10^3/uL; Basophil% 0.6 % (0-1); Eosinophil# 0.23 X10^3/uL; Hematocrit 33.2 % (37-47); Lymphocyte # 1.38 X10^3/ul (0.83-4.51); Lymphocyte % 11.8 % (19-41); Mean Corp Hgb Conc 33.1 g/dL (32-36); Mean Corpuscular Hgb 29.9 pg (27.0-32.0); Mean Corpuscular Volume 90.2 fL (81-99); Mean Platelet Vol. 8.8 fl (6.2-12.0); Monocyte# 0.75 X10^3/uL; Monocyte% 6.4 % (0-10); NRBC Flagged by Analyzer 0 % (0-5); Neutrophil # 9.23 X10^3/uL (2.7-7.7); Neutrophil % 78.5 % (47-70); Platelet Count 472 K/mm3 (150-450); RBC Distribution Width CV 11.8 % (11.6-14.6); RBC Distribution Width SD 39.1 fl (35.1-43.9); Red Blood Count 3.68 M/mm3 (4.2-5.4); White Blood Count 11.7 K/mm3 (4.4-11.0)
[2021-11-02 12:45] LABS: Anion Gap 5 (5-15); BUN 7 mg/dL (7-18); BUN/Creat Ratio 10.9 RATIO (10-20); Calcium,Total 9.6 mg/dL (8.5-10.1); Chloride 100 mmol/L (98-107); Creatinine, Serum 0.64 mg/dL (0.55-1.02); EST Glomerular Filtration Rate 96 mL/min (>60); Est Glom Filt Rate - Afr Amer 117 mL/min (>60); Estimated Creatinine Clearance 49.79 ml/min; Glucose 118 mg/dL (74-106); Potassium 3.4 mmol/L (3.5-5.1); Sodium Level 134 mmol/L (136-145)
[2021-11-02 12:54] LABS: Lactic Acid 0.8 mmol/L (0.4-1.9)
[2021-11-02] MEDS: Acetaminophen 325 MG Tablet 650 MG PO (17:43)
[2021-11-02] MEDS: Metoprolol Tartrate 5 MG/5 ML Vial IV ×2 (17:43→23:43)
[2021-11-02] MEDS: 0.9% Normal Saline 1,000 ML 100 ML IV (17:43)
--- NOTE | 2021-11-02 17:59 | HP.PCM_ITS ---
[facility] - General General Date of Admission: 11/02/21 Date of Service: 11/02/21 Chief Complaint: Abdominal pain HPI Narrative MAIKOL DIETZ, is a 76 F who presents with a 10 day history of abdominal pain and diarrhea. Patient was evaluated by her PCP, Dr. Kinsey. Patient was referred for a CT scan of the ab/pelvis due to abdominal pain and diarrhea. 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 Patient was placed on oral antibiotics, Augmentin x 7 days. Her first dose was taken on Saturday night. She notes she was also given two Rocephin injections at her PCP's office. Patient contacted her PCP office today due to continued pain despite being on antibiotic therapy. She was sent to the ED by her PCP. Patient notes abdominal fullness/tightness. She notes her lower abdomen has a menstrual-like cramping sensation which has been ongoing. She stated at first her symptoms felt as though she had a urinary tract infection. She notes the discomfort does radiate into her back. She also notes since this episode has occurred, she has felt chills. No fever. She notes a lack of appetite. She notes loose stools. She notes her father had a history of diverticular disease with colon resection and colostomy placement. She denies family history of colon cancer. She denies discharge, air or drainage of stool from the vaginal area. Patient denies having bowel issues previously. Patient had a repeat CT scan of the ab/pel in the ED demonstrating stable findings of colitis of the rectosigmoid colon. Small amount of air within the vaginal cuff and vagina are noted. Patient has a history of high blood pressure, otherwise healthy. She denies having a previous c olonoscopy. WBC 11.7, Hgb 11.0, Hct 33.2, Plt 472 PFSH Medical History Colitis Hypertension Non-smoker Home Medications amoxicillin 875 mg-potassium clavulanate 125 mg tablet 1 tab PO BID 11/02/21 [History Last Taken 11/02/21] cholecalciferol (vitamin D3) 25 mcg (1,000 unit) tablet (Vitamin D3) 25 mcg PO DAILY 11/02/21 [History Last Taken 11/01/21] metoprolol tartrate 25 mg tablet 12.5 mg PO BID 11/02/21 [History Last Taken 11/02/21] multivitamin 1 tab PO DAILY 11/02/21 [History Last Taken 11/01/21] valsartan 320 mg-hydrochlorothiazide 12.5 mg tablet 1 tab PO DAILY 11/02/21 [History Last Taken 11/01/21] Allergy/AdvReac Type Severity Reaction Status Date / Time No Known Allergies Allergy Verified 11/02/21 11:39 Social History Smoking Status: Never smoker ROS Constitutional Constitutional: Reports systems reviewed and no addt'l complaints, except as documented Eyes Eyes: Reports systems reviewed and no addt'l complaints, except as documented ENT HEENT: Reports systems reviewed and no addt'l complaints, except as documented Cardiovascular Cardiovascular: Reports systems reviewed and no addt'l complaints, except as documented Respiratory/Chest Respiratory/Chest: Reports systems reviewed and no addt'l complaints, except as documented Gastrointestinal Gastrointestinal: Reports systems reviewed and no addt'l complaints, except as documented Genitourinary Genitourinary: Reports systems reviewed and no addt'l complaints, except as documented Musculoskeletal Musculoskeletal: Reports systems reviewed and no addt'l complaints, except as documented Integumentary Integumentary: Reports systems reviewed and no addt'l complaints, except as documented Neurologic Neurologic: Reports systems reviewed and no addt'l complaints, except as documented Psychiatric Psychiatric: Reports systems reviewed and no addt'l complaints, except as documented Endocrine Endocrinology: Reports systems reviewed and no addt'l complaints, except as documented Hematologic/Lymphatic Hematologic/Lymphatic: Reports systems reviewed and no addt'l complaints, except as documented Allergic/Immunologic Allergic/Immunologic: Reports systems reviewed and no addt'l complaints, except as documented Vital Signs Vital Signs Vital Signs: 11/02/21 11:40 11/02/21 13:48 11/02/21 14:41 Temperature 96.9 F L 97.6 F L Temperature Source Temporal Oral Pulse Rate 102 H 89 92 Respiratory Rate 17 18 16 Blood Pressure 141/70 H 163/75 H 140/71 H Blood Pressure Mean 93 104 94 Blood Pressure Source Blood Pressure Position Blood Pressure Location Pulse Ox 98 99 99 Oxygen Delivery Method Room Air Room Air Room Air 11/02/21 16:00 11/02/21 17:00 11/02/21 16:50 Temperature 98.2 F 97.8 F Temperature Source Oral Oral Pulse Rate 86 84 68 Respiratory Rate 16 16 Blood Pressure 142/77 H 183/77 H Blood Pressure Mean 98 112 Blood Pressure Source Monitor Blood Pressure Position Sitting Blood Pressure Location Right Arm Pulse Ox 98 99 Oxygen Delivery Method Room Air Room Air 11/02/21 17:43 Temperature Temperature Source Pulse Rate 86 Respiratory Rate Blood Pressure Blood Pressure Mean Blood Pressure Source Blood Pressure Position Blood Pressure Location Pulse Ox Oxygen Delivery Method Weight Weight: 147 lb Body Mass Index (BMI) 22.3 Physical Exam Const alert, oriented x3 and no apparent distress HEENT normocephalic and head/scalp atraumatic Eyes PERRL Neck full ROM Resp normal respiratory effort and clear to auscultation bilaterally Effort and Inspection: able to speak in complete sentences Cardio regular rate and regular rhythm GI Inspection: abdominal distention Auscultation: normoactive bowel sounds Palpation: soft and tender LLQ and RLQ no CVA tenderness Back/Spine normal ROM Extremity General Extremity: edema left lower extremity mild Skin no rashes or lesions noted Neuro no focal motor deficits and no sensory deficits noted Psych mental status grossly normal and thought process normal Mood & Affect: anxious Results Lab / Micro Data Result Diagrams: 11/02/21 12:10 11/02/21 12:10 Labs: Laboratory Results - last 24 hr 11/02/21 12:10: WBC 11.7 H, RBC 3.68 L, Hgb 11.0 L, Hct 33.2 L, MCV 90.2, MCH 29.9, MCHC 33.1, RDW Std Deviation 39.1, RDW Coeff of [place] 11.8, Plt Count 472 H, MPV 8.8, Immature Gran % (Auto) 0.700, Neut % (Auto) 78.5 H, Lymph % (Auto) 11.8 L, [place] % (Auto) 6.4, Eos % (Auto) 2.0, Baso % (Auto) 0.6, Absolute Neuts (auto) 9.2 H, Absolute Lymphs (auto) 1.38, Nucleated RBC % 0 11/02/21 12:10: Sodium 134 L, Potassium 3.4 L, Chloride 100, Carbon Dioxide 29.0, Anion Gap 5, BUN 7, Creatinine 0.64, Estim Creat Clear Calc 49.79, Est GFR (MDRD) Af Amer 117, Est GFR (MDRD) Non-Af 96, BUN/Creatinine Ratio 10.9, Glucose 118 H, Calcium 9.6 11/02/21 12:10: Lactic Acid 0.8 Radiology Impression Abdomen/Pelvis CT 11/02/21 11:57 IMPRESSION: Stable findings suggestive of colitis of the rectosigmoid colon. Small amount of air is seen within the vagina and vaginal cuff. A core vaginal fistula should be ruled out. Stable 2.7 cm left ovarian cyst. Electronically Signed: Arnulfo Gray MD at 13:22 EDT , Assessment & Plan Assessment/Plan (1) Abdominal pain: PLAN: Patient has had a 10 day history of abdominal pain and change in bowel habits secondary to colitis. Patient has failed out patient treatment for colitis and had a CT scan of the ab/pel demonstrating a possible colovaginal fistula. Patient does not note any stool leakage out of the vagina or air from the vagina. Patient has not had a urinalysis at this time. Patient presents to the ED secondary to continued symptoms and failed out patient treatment. Plan to admit patient NPO status, bowel rest, IV fluids and IV Zosyn. I will replace potassium. Urinalysis has been ordered. Order blood work for tomorrow morning. Patient does not have an acute surgical abdomen at this time. It is unclear at this time after reviewing the CT scan that the patient has a true colovaginal fistula. Ordering a urinalysis may help to determine if a colovaginal fistula is present. Patient again does not have any discharge, drainage or air coming from the vagina. Patient has never had a colonoscopy previously. Once patient has completed IV antibiotic therapy and is discharged, she would need to have an outpatient follow-up and colonoscopy scheduled for further evaluation and work-up. Patient has voiced understanding and agreement with the above treatment plan. Patient and her [id number] have had the opportunity to ask and have questions answered. Patient verbally understands and agrees with the plan. I have been asked to see this patient in conjunction with Dr. Lawler. He has independently evaluated this patient. Thank you for allowing us to participate in this patient's care. (2) Colitis: Charges/Coding Visit Charges Inpatient E&M: 15050 Init Hosp L2
[2021-11-02] MEDS: Potassium Chloride 10mEq/100mL 10 MEQ/100 ML IV.SOLN. 100 MEQ IV BOLUS ×4 (19:46→23:44)
[2021-11-02] MEDS: 0.9% Saline Lock 10 ML Syringe IV ×2 (20:40→23:40)
[2021-11-02] MEDS: Ondansetron 4 MG/2 ML Vial IV (20:40)
[2021-11-03] VITALS (18 sets, daily range): BP systolic 144–168; BP diastolic 58–88; PULSE 80–109; RESP 16–18; TEMP 36.4–37.5; O2SAT 95–99; BMI 22.2
[2021-11-03 01:17] LABS: Mucous, Urine 0 SEEN /hpf (<or=2+); Red Blood Cells-Urine 0 SEEN /hpf (0-5); Squamous Epithelial Cells - UA 0 SEEN /hpf (5-10); White Blood Cells 0 SEEN /hpf (0-5)
[2021-11-03 01:18] LABS: Color, Urine Yellow (Yellow); Glucose, Dipstick Normal (Normal); Ketone-Dipstick 15 mg/dl (Negative); Leukocyte Esterase-Dipstick Negative /ul (Negative); Nitrite-Dipstick Negative (Negative); Occult Blood-Urine 10 /ul (Negative); Protein-Dipstick 15 mg/dl (Negative); Specific Gravity, Urine 1.015 (1.002-1.030); Urine Bilirubin Dipstick Negative (Negative); Urine Clarity Clear (Clear); Urine Urobilinogen Normal (Normal)
[2021-11-03 02:04] LABS: Bacteria RARE /hpf (None Seen)
[2021-11-03] MEDS: Acetaminophen 325 MG Tablet 650 MG PO (02:33)
[2021-11-03] MEDS: 0.9% Normal Saline 1,000 ML 100 ML IV ×3 (02:33→19:26)
[2021-11-03] MEDS: Metoprolol Tartrate 5 MG/5 ML Vial IV (06:15)
[2021-11-03] MEDS: 0.9% Saline Lock 10 ML Syringe IV ×3 (06:15→22:19)
[2021-11-03 06:20] LABS: Absolute Lymphocyte Count 0.82 X10^3/uL (0.83-4.51); Absolute Neutrophil Count 10.6 X10^3/uL (2.0-7.7); Basophil# 0.04 X10^3/uL; Basophil% 0.3 % (0-1); Eosinophil# 0.06 X10^3/uL; Eosinophils% 0.5 % (0-5); Hematocrit 35.6 % (37-47); Hemoglobin 11.8 g/dL (12.0-15.0); Lymphocyte # 0.82 X10^3/ul (0.83-4.51); Lymphocyte % 6.8 % (19-41); Mean Corp Hgb Conc 33.1 g/dL (32-36); Mean Corpuscular Hgb 30.3 pg (27.0-32.0); Mean Corpuscular Volume 91.3 fL (81-99); Mean Platelet Vol. 8.6 fl (6.2-12.0); Monocyte# 0.38 X10^3/uL; Monocyte% 3.2 % (0-10); NRBC Flagged by Analyzer 0 % (0-5); Neutrophil # 10.61 X10^3/uL (2.7-7.7); Neutrophil % 88.5 % (47-70); Platelet Count 513 K/mm3 (150-450); RBC Distribution Width CV 11.9 % (11.6-14.6); RBC Distribution Width SD 39.5 fl (35.1-43.9)
[2021-11-03 06:52] LABS: Anion Gap 9 (5-15); BUN 8 mg/dL (7-18); BUN/Creat Ratio 16.5 RATIO (10-20); Calcium,Total 9.1 mg/dL (8.5-10.1); Chloride 107 mmol/L (98-107); Creatinine, Serum 0.48 mg/dL (0.55-1.02); EST Glomerular Filtration Rate 133 mL/min (>60); Est Glom Filt Rate - Afr Amer 161 mL/min (>60); Estimated Creatinine Clearance 49.79 ml/min; Glucose 114 mg/dL (74-106); Magnesium 2.4 mg/dL (1.6-2.6); Potassium 3.2 mmol/L (3.5-5.1); Sodium Level 138 mmol/L (136-145)
[2021-11-03 06:56] LABS: Phosphorus 2.9 mg/dL (2.5-4.9)
--- NOTE | 2021-11-03 08:24 | CT_ITS ---
STUDY: CT ABDOMEN AND PELVIS WITH CONTRAST REASON FOR EXAM: Female, 76 years old. Eval for stricture/fistula of distal large bowel RADIATION DOSAGE (If Supplied By Facility): CTDIvol = ( 11.92 ) mGy, DLP = ( 756.75 ) mGycm TECHNIQUE: Transaxial images were obtained from the dome of the diaphragm to the symphysis pubis with oral contrast. Oral and rectal Gastrografin and amp; 100mL Isovue-300 was administered. Sagittal and coronal images were reconstructed. Individualized dose optimization techniques were used for this CT. COMPARISON: Comparison is made with prior study 11/02/2021. FINDINGS: Tiny bilateral effusions with bibasilar atelectasis slightly worse on the right side. The visualized portions of the heart are within normal limits. Small amount of perihepatic and perisplenic free fluid. I suspect a small amount of free air in the right subphrenic region. Stable hepatic cysts. 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 Normal gallbladder and extrahepatic biliary system. Normal spleen. Normal pancreas. Normal bilateral adrenal glands. Normal right kidney. Normal left kidney. Normal visualized stomach. Normal small intestine. Distended colon with large amount of fecal material throughout. Persistent diffuse thickening and inflammatory change with marked degree of narrowing of the lumen of the rectosigmoid colon. There is diffuse atherosclerotic calcification of the abdominal aorta, without a demonstrated aneurysm. Normal inferior vena cava. Normal retroperitoneum. GASTROGRAFIN is seen within the urinary bladder. This is in keeping with a cortical vesicle fistula. Stable 2.7 cm cyst in the left ovary. Normal abdominal wall. There are diffuse degenerative changes of the visualized lumbar spine. CT/Abdomen/Pelvis WITH Contrast IMPRESSION: Small amount of free fluid. I suspect localized air in the right subphrenic space. Marked distention of the colon with large amount of fecal material down to the sigmoid colon. Diffuse thickening and mass effect involving the rectosigmoid colon with increased markings in the surrounding peritoneal fat. There is opacification of the urinary bladder with the GASTROGRAFIN emptied with a colovesical fistula. Electronically Signed: Arnulfo Gray MD at 9:27 EDT ,
--- NOTE | 2021-11-03 08:57 | PCM.PN.SRG ---
Subjective Subjective Patient seen and examined during AM rounds. She reports no improvement of her symptoms and complains of persistent fullness in her abdomen and difficulty with defecation. Nursing enters her room and also reports that patient has had some retention issues and required a straight cath at approximately 1:00 this morning (with output volume of greater than 400 mL) to achieve ordered urinalysis. Patient denies any fevers or chills. Objective Data Objective Data Vital Signs: Vital Signs Temp Pulse Resp BP Pulse Ox O2 Del Method 98.7 F 85 18 163/83 H 96 Room Air 11/03/21 07:52 11/03/21 07:52 11/03/21 07:52 11/03/21 07:52 11/03/21 07:52 11/03/21 07:52 Oxygen Delivery Method Room Air Weight: 146 lb 2.664 oz Body Mass Index (BMI) 22.3 Intake & Output: Intake and Output for Last 24 Hours 11/01/21 11/02/21 11/03/21 23:59 23:59 23:59 Intake Total 1097.92 / 1097.92 1033.33 / 1033.33 Output Total 450 / 450 Balance 1097.92 / 1097.92 583.33 / 583.33 Lab / Micro Data Result Diagrams: 11/03/21 05:43 11/03/21 05:43 Labs: Laboratory Results - last 24 hr 11/02/21 12:10: WBC 11.7 H, RBC 3.68 L, Hgb 11.0 L, Hct 33.2 L, MCV 90.2, MCH 29.9, MCHC 33.1, RDW Std Deviation 39.1, RDW Coeff of Annalee 11.8, Plt Count 472 H, MPV 8.8, Immature Gran % (Auto) 0.700, Neut % (Auto) 78.5 H, Lymph % (Auto) 11.8 L, [place] % (Auto) 6.4, Eos % (Auto) 2.0, Baso % (Auto) 0.6, Absolute Neuts (auto) 9.2 H, Absolute Lymphs (auto) 1.38, Nucleated RBC % 0 11/02/21 12:10: Sodium 134 L, Potassium 3.4 L, Chloride 100, Carbon Dioxide 29.0, Anion Gap 5, BUN 7, Creatinine 0.64, Estim Creat Clear Calc 49.79, Est GFR (MDRD) Af Amer 117, Est GFR (MDRD) Non-Af 96, BUN/Creatinine Ratio 10.9, Glucose 118 H, Calcium 9.6 11/02/21 12:10: Lactic Acid 0.8 11/03/21 01:05: Urine Color Yellow, Urine Clarity Clear, Urine pH 5.0, Ur Specific [place] 1.015, Urine Protein 15 H, Urine Glucose (UA) Normal, Urine Ketones 15 H, Urine Occult Blood 10 H, Urine Nitrite Negative, Urine Bilirubin Negative, Urine Urobilinogen Normal, Ur Leukocyte Esterase Negative, Urine RBC 0 SEEN, Urine WBC 0 SEEN, Ur Squamous Epith Cells 0 SEEN, Urine Bacteria RARE, Urine Mucus 0 SEEN 11/03/21 05:43: WBC 12.0 H, RBC 3.90 L, Hgb 11.8 L, Hct 35.6 L, MCV 91.3, MCH 30.3, MCHC 33.1, RDW Std Deviation 39.5, RDW Coeff of Annalee 11.9, Plt Count 513 H, MPV 8.6, Immature Gran % (Auto) 0.700, Neut % (Auto) 88.5 H, Lymph % (Auto) 6.8 L, [place] % (Auto) 3.2, Eos % (Auto) 0.5, Baso % (Auto) 0.3, Absolute Neuts (auto) 10.6 H, Absolute Lymphs (auto) 0.82 L, Nucleated RBC % 0 11/03/21 05:43: Sodium 138, Potassium 3.2 L, Chloride 107, Carbon Dioxide 22.0, Anion Gap 9, BUN 8, Creatinine 0.48 L, Estim Creat Clear Calc 49.79, Est GFR (MDRD) Af Amer 161, Est GFR (MDRD) Non-Af 133, BUN/Creatinine Ratio 16.5, Glucose 114 H, Calcium 9.1, Magnesium 2.4 11/03/21 05:43: Phosphorus 2.9 Radiography Diagnostic Testing: Radiology Impression Abdomen/Pelvis CT 11/02/21 11:57 IMPRESSION: Stable findings suggestive of colitis of the rectosigmoid colon. Small amount of air is seen within the vagina and vaginal cuff. A core vaginal fistula should be ruled out. Stable 2.7 cm left ovarian cyst. Electronically Signed: Arnulfo Gray MD at 13:22 EDT , Physical Exam Const oriented x3 Constitutional Narrative: Patient appears uncomfortable Resp normal respiratory effort GI GI Narrative: Distended, soft, mildly tender to palpation across lower abdominal quadrants Assessment & Plan Assessment/Plan (1) Colitis: (2) Constipation: (3) Urinary retention: (4) Hypertension: PLAN: Plan Neuro: As needed OTC meds and Dilaudid Pulm/CV: Patient currently with as needed metoprolol, will add back home antihypertensives FEN/GI: Follow-up laboratory results this morning, continue n.p.o., CT of the abdomen pelvis with rectal contrast ordered through radiology : Continue to follow for spontaneous void post straight cath Heme/ID: Patient with persistent leukocytosis, trend CBC, continue empiric coverage with Zosyn Endo: No current issues Proph: SCDs Dispo: Continue inpatient care Charges/Coding Visit Charges Inpatient E&M: 29856 Subs Hosp L2
[2021-11-03] MEDS: Metoprolol Tartrate 25 MG Tablet 12.5 MG PO ×2 (09:39→21:29)
[2021-11-03] MEDS: Ondansetron 4 MG/2 ML Vial IV ×2 (09:39→22:19)
--- NOTE | 2021-11-03 10:23 | CASEMGMT ---
ALBA CAPONE Assessment: Face to Face with pt for initial transition planning/care coordination assessment. RN ESTELITA introduced self and role at [facility], pt voices understanding and consents to assessment. Pt is A/O x4 and answers all questions appropriately at this time. Pt sitting on edge of bed ready to go to restroom, unplugged IV cords for pt. Care providers, pharmacy, and demographics verified/updated. Admitting Dx: Abd pain, colitis PCP:Tio Specialists: Pt denies. Preferred Pharmacy: [facility] Insurance: [employer] [facility] Prescription Benefit: yes LW/HPOA: Pt states she has a LW/DPOA and her DPOA is Jacky Pacheco. She is aware this is not on file at [facility] and she may bring in to be scanned into the chart. LNOK: Jacky Pacheco, son Living Arrangements: Pt lives alone in a two story house with 6 steps to enter with a rail. Pt reports she is I in ADL's and denies concerns at home. Transportation: Pt drives self and denies concerns with transportation. DME/HHC/SNF: Pt has a cane at home but does not use. Pt denies hx of HHC or SNF stays. Pt states no concerns with going home at time of dc. Pt states no further concerns/needs. CM to follow. Advised pt to ask CM if any further question/concerns/needs arise, voices understanding. Pt Goal: Home Plan: Home
[2021-11-03] MEDS: Potassium Chloride 10mEq/100mL 10 MEQ/100 ML IV.SOLN. 100 MEQ IV BOLUS ×4 (10:37→14:27)
--- NOTE | 2021-11-03 10:50 | NURSING ---
[facility] CALLED REQUESTING THEY SEND [facility]
--- NOTE | 2021-11-03 12:35 | NURSING ---
Son Jacky bedside given update at pt's request
--- NOTE | 2021-11-03 13:20 | EKG12_ITS ---
Test Reason : PRE OP Blood Pressure : / mmHG Vent. Rate : 082 BPM Atrial Rate : 082 BPM P-R Int : 156 ms QRS Dur : 090 ms QT Int : 362 ms P-R-T Axes : 062 011 018 degrees QTc Int : 422 ms Sinus rhythm with Premature atrial complexes Otherwise normal ECG Confirmed by LASHANDA RICO, ALESSIO ([id number]), sound editor MYRON CASTAÑEDA ([id number]) on 11/07/2021 1:10:36 PM Referred By: Confirmed By:ALESSIO PYLE MD
--- NOTE | 2021-11-03 13:42 | NURSING ---
TEGAN Rouse RN updated, no order for consent, Dr. Gandara has not seen pt.
--- NOTE | 2021-11-03 16:05 | PCM.PN.SRG ---
Subjective Subjective Patient is complaining that she has not had any stool or flatus. She has dry heaves. She is tightly uncomfortable. She is asked me to become involved and helped direct her surgical care. Objective Data Objective Data Vital Signs: Vital Signs Temp Pulse Resp BP Pulse Ox O2 Del Method 98.1 F 80 18 168/72 H 97 Room Air 11/03/21 13:09 11/03/21 13:09 11/03/21 13:09 11/03/21 13:09 11/03/21 13:09 11/03/21 13:09 Oxygen Delivery Method Room Air Weight: 146 lb 2.664 oz Body Mass Index (BMI) 22.2 Intake & Output: Intake and Output for Last 24 Hours 11/01/21 11/02/21 11/03/21 23:59 23:59 23:59 Intake Total 1097.92 / 1097.92 2383.33 / 2383.33 Output Total 925 / 925 Balance 1097.92 / 1097.92 1458.33 / 1458.33 Lab / Micro Data Result Diagrams: 11/03/21 05:43 11/03/21 05:43 Labs: Laboratory Results - last 24 hr 11/03/21 01:05: Urine Color Yellow, Urine Clarity Clear, Urine pH 5.0, Ur Specific [place] 1.015, Urine Protein 15 H, Urine Glucose (UA) Normal, Urine Ketones 15 H, Urine Occult Blood 10 H, Urine Nitrite Negative, Urine Bilirubin Negative, Urine Urobilinogen Normal, Ur Leukocyte Esterase Negative, Urine RBC 0 SEEN, Urine WBC 0 SEEN, Ur Squamous Epith Cells 0 SEEN, Urine Bacteria RARE, Urine Mucus 0 SEEN 11/03/21 05:43: WBC 12.0 H, RBC 3.90 L, Hgb 11.8 L, Hct 35.6 L, MCV 91.3, MCH 30.3, MCHC 33.1, RDW Std Deviation 39.5, RDW Coeff of Annalee 11.9, Plt Count 513 H, MPV 8.6, Immature Gran % (Auto) 0.700, Neut % (Auto) 88.5 H, Lymph % (Auto) 6.8 L, [place] % (Auto) 3.2, Eos % (Auto) 0.5, Baso % (Auto) 0.3, Absolute Neuts (auto) 10.6 H, Absolute Lymphs (auto) 0.82 L, Nucleated RBC % 0 11/03/21 05:43: Sodium 138, Potassium 3.2 L, Chloride 107, Carbon Dioxide 22.0, Anion Gap 9, BUN 8, Creatinine 0.48 L, Estim Creat Clear Calc 49.79, Est GFR (MDRD) Af Amer 161, Est GFR (MDRD) Non-Af 133, BUN/Creatinine Ratio 16.5, Glucose 114 H, Calcium 9.1, Magnesium 2.4 11/03/21 05:43: Phosphorus 2.9 Radiography Diagnostic Testing: Radiology Impression Abdomen/Pelvis CT 11/03/21 08:24 IMPRESSION: Small amount of free fluid. I suspect localized air in the right subphrenic space. Marked distention of the colon with large amount of fecal material down to the sigmoid colon. Diffuse thickening and mass effect involving the rectosigmoid colon with increased markings in the surrounding peritoneal fat. There is opacification of the urinary bladder with the GASTROGRAFIN emptied with a colovesical fistula. Electronically Signed: Arnulfo Gray MD at 9:27 EDT , Physical Exam GI GI Narrative: Abdomen is tightly distended, tympanitic, no focal tenderness, patient has an emesis bag at her side Assessment & Plan Assessment/Plan (1) Large bowel obstruction: PLAN: Plan 76-year-old female whose presentation is consistent with a large bowel obstruction of as yet undetermined etiology. She is markedly distended. It appears that her ileocecal valve is competent not allowing retrograde decompression of her colon. Her colon is markedly distended and there is evidence of a tight distal sigmoid stricturing with transmural thickening and inflammation. Perhaps one gas bubble within the vagina. The patient received rectal and IV contrast so difficult to tell if the material within the urinary bladder is IV contrast which is what I would suspect based upon the normal urinalysis. On review of Emi I do not believe that we will be able to gain laparoscopic access and would like to avoid a major procedure in light of her significant distention. I would propose an attempt at a loop transverse colostomy to decompress her and this then would allow time to help do a more thorough evaluation and future surgical plans. She has had an opportunity to ask and have questions answered. At this time I am recommending a loop transverse colostomy. Joo Gandara M.D., F.A.C.S.
[2021-11-03] MEDS: Lactated Ringers 1,000 ML 15 ML IV (16:15)
[2021-11-03] MEDS: Bupivacaine 0.25% 30 ML Vial (17:00)
[2021-11-03] MEDS: Lubricating Jelly 60 GM Tube 30 GM (17:24)
--- NOTE | 2021-11-03 17:30 | OP.PCM_ITS ---
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 76-year-old female was taken to the operating placed upon the table underwent general endotracheal ovation esthesia. NG tube was placed. The patient was already getting her therapeutic Zosyn therapy. The abdomen was sterilely prepped and draped. 0.25% Marcaine was used as local anesthetic. Local was instilled just superior of the umbilicus and to the left at the rectus muscular. Transverse incision was created electrocautery was used to incise the subcutaneous fat and anterior sheath and the rectus muscle was transected the posterior sheath was opened markedly distended transverse colon was fortunately rapidly identified some effort was required to get circumferential control initially placed a stomal bar but that would not stay in position so I then switched to a 36 Persian chest tube this that was all that was available. Place a chest tube underneath secured that with 0 Nurolon after amputating it to length. The anterior sheath was then partially reapproximated with interrupted [id number] sutures of 0 Vicryl. The apical skin edges were approximated with subdermal erupted 4-0 Monocryl. The colon was then longitudinally electrocautery was inverted and the edges were broke sutured with 4-0 Vicryl. Both ends of the stoma were digitally palpated and the area was allowed to decompress. Patient's abdomen was much improved and less distended at the completion of the procedure. Specimen none. Drains none. Blood loss minimal. The patient was taken to the recovery room in satisfactory addition without apparent complication Joo Gandara M.D., F.A.C.S. Surgeon: Joo Gandara iuss acoustic analyst: Rolando Lawler Type of Anesthesia: General and Local Anesthesiologist: Edenilosn Mendoza
--- NOTE | 2021-11-03 17:50 | RAD_ITS ---
STUDY: XR Abdomen 1 View 11/03/2021 5:49 PM REASON FOR EXAM: Female, 76 years old. ABDOMINAL PAIN ngt placement -- KUB with both diaphragms for NG/OG Verification TECHNIQUE: XR Abdomen 1 View COMPARISON: None FINDINGS: Normal visualized lung bases. There is a feeding tube/ nasogastric tube noted. The tip is in the region of the stomach. There is gaseous distention of the colon with persistent oral contrast in the colon, consistent with a partial large bowel obstruction. There is no demonstrated free abdominal air. The visualized liver, spleen and kidneys are grossly normal in size and morphology. Normal soft tissue structures. Normal visualized osseous structures. RAD/Abdomen Single View (Portable) IMPRESSION: There is gaseous distention of the colon with persistent oral contrast in the colon, consistent with a partial large bowel obstruction. Electronically Signed: Gokul Whitman MD at 18:12 EDT ,
--- NOTE | 2021-11-03 18:42 | NURSING ---
pt off unit
--- NOTE | 2021-11-03 19:31 | NURSING ---
pt arrived back to unit a&ox3. breathing even/unlabored. no distres noted. NGT to low suction. intact left nares. colostomy appliance intact beefy stoma. pt denies all pain needs. visitors bedside. call light within reach
[2021-11-03] MEDS: Losartan Potassium 100 MG Tablet PO (21:29)
[2021-11-03] MEDS: hydroCHLOROthiazide 12.5mg 12.5 MG PO (21:29)
[2021-11-03] MEDS: HYDROmorphone 0.5 MG/0.5 ML SYRINGE IV (22:21)
--- NOTE | 2021-11-03 23:46 | NURSING ---
Pt sat on the edge of the bed and dangled her legs. Pt then stood at the side of the bed with assist of 2 staff. Pt tolerated well. Pt took several steps in the room and then was ready to get back in bed. pt tolerated well.
[2021-11-04] VITALS (7 sets, daily range): BP systolic 124–175; BP diastolic 67–83; PULSE 84–102; RESP 16–18; TEMP 36.8–37.2; O2SAT 97–98
--- NOTE | 2021-11-04 02:08 | NURSING ---
Pt walked a full lap in the ponce. Pt tolerated well.
--- NOTE | 2021-11-04 04:02 | NURSING ---
pt walked another full lap in the ponce. tolerated well.
[2021-11-04] MEDS: 0.9% Normal Saline 1,000 ML 100 ML IV (05:33)
--- NOTE | 2021-11-04 05:44 | NURSING ---
pt walked another full lap in the ponce.
[2021-11-04 06:27] LABS: Absolute Lymphocyte Count 1.69 X10^3/uL (0.83-4.51); Basophil# 0.03 X10^3/uL; Basophil% 0.1 % (0-1); Eosinophil# 0.02 X10^3/uL; Eosinophils% 0.1 % (0-5); Hematocrit 37.1 % (37-47); Hemoglobin 12.3 g/dL (12.0-15.0); Lymphocyte # 1.69 X10^3/ul (0.83-4.51); Lymphocyte % 7.6 % (19-41); Mean Corp Hgb Conc 33.2 g/dL (32-36); Mean Corpuscular Hgb 30.7 pg (27.0-32.0); Mean Corpuscular Volume 92.5 fL (81-99); Mean Platelet Vol. 8.5 fl (6.2-12.0); Monocyte# 1.29 X10^3/uL; Monocyte% 5.8 % (0-10); NRBC Flagged by Analyzer 0 % (0-5); Neutrophil # 19.04 X10^3/uL (2.7-7.7); Neutrophil % 85.1 % (47-70); Platelet Count 685 K/mm3 (150-450); RBC Distribution Width SD 40.8 fl (35.1-43.9); Red Blood Count 4.01 M/mm3 (4.2-5.4); White Blood Count 22.4 K/mm3 (4.4-11.0)
[2021-11-04 06:54] LABS: Anion Gap 6 (5-15); BUN 10 mg/dL (7-18); BUN/Creat Ratio 15.5 RATIO (10-20); Calcium,Total 9.4 mg/dL (8.5-10.1); Chloride 107 mmol/L (98-107); Creatinine, Serum 0.65 mg/dL (0.55-1.02); EST Glomerular Filtration Rate 95 mL/min (>60); Est Glom Filt Rate - Afr Amer 115 mL/min (>60); Estimated Creatinine Clearance 49.79 ml/min; Glucose 137 mg/dL (74-106); Potassium 4.2 mmol/L (3.5-5.1); Sodium Level 138 mmol/L (136-145)
--- NOTE | 2021-11-04 07:26 | PCM.PN.SRG ---
Subjective Subjective Patient complains of sore throat. Abdominal pain is very tolerable. She has been able to void. She has been up and walking. She notes that postoperatively she was decompressed but now she has become distended again Objective Data Objective Data Vital Signs: Vital Signs Temp Pulse Resp BP Pulse Ox O2 Del Method 98.7 F 84 16 150/78 H 98 Room Air 11/04/21 04:22 11/04/21 04:22 11/04/21 04:22 11/04/21 04:22 11/04/21 04:22 11/04/21 04:22 Oxygen Delivery Method Room Air Weight: 154 lb 1.65 oz Body Mass Index (BMI) 22.2 Intake & Output: Intake and Output for Last 24 Hours 11/02/21 11/03/21 11/04/21 23:59 23:59 23:59 Intake Total 1097.92 / 1097.92 3208.58 / 3208.58 1110 / 1110 Output Total 1075 / 1075 200 / 200 Balance 1097.92 / 1097.92 2133.58 / 2133.58 910 / 910 Lab / Micro Data Result Diagrams: 11/04/21 05:50 11/04/21 05:50 Labs: Laboratory Results - last 24 hr 11/04/21 05:50: WBC 22.4 H, RBC 4.01 L, Hgb 12.3, Hct 37.1, MCV 92.5, MCH 30.7, MCHC 33.2, RDW Std Deviation 40.8, RDW Coeff of Annalee 12.0, Plt Count 685 H, MPV 8.5, Immature Gran % (Auto) 1.300 H, Neut % (Auto) 85.1 H, Lymph % (Auto) 7.6 L, Sedgwick % (Auto) 5.8, Eos % (Auto) 0.1, Baso % (Auto) 0.1, Absolute Neuts (auto) 19.0 H, Absolute Lymphs (auto) 1.69, Nucleated RBC % 0 11/04/21 05:50: Sodium 138, Potassium 4.2, Chloride 107, Carbon Dioxide 25.0, Anion Gap 6, BUN 10, Creatinine 0.65, Estim Creat Clear Calc 49.79, Est GFR (MDRD) Af Amer 115, Est GFR (MDRD) Non-Af 95, BUN/Creatinine Ratio 15.5, Glucose 137 H, Calcium 9.4 Radiography Diagnostic Testing: Radiology Impression Abdomen/Pelvis CT 11/03/21 08:24 IMPRESSION: Small amount of free fluid. I suspect localized air in the right subphrenic space. Marked distention of the colon with large amount of fecal material down to the sigmoid colon. Diffuse thickening and mass effect involving the rectosigmoid colon with increased markings in the surrounding peritoneal fat. There is opacification of the urinary bladder with the GASTROGRAFIN emptied with a colovesical fistula. Electronically Signed: Arnulfo Gray MD at 9:27 EDT , KUB X-Ray 11/03/21 17:50 IMPRESSION: There is gaseous distention of the colon with persistent oral contrast in the colon, consistent with a partial large bowel obstruction. Electronically Signed: Gokul Whitman MD at 18:12 EDT , Physical Exam Resp normal respiratory effort GI GI Narrative: Abdomen is distended and taut, stoma is edematous and dark red. No stool in bag. Assessment & Plan Assessment/Plan (1) Large bowel obstruction: PLAN: Patient notes almost 2-week history of lack of proper movement of her bowels consistent with now prolonged high-grade large bowel obstruction. I have encouraged mobilization. I will keep the NG tube in for the moment. She is encouraged to walk. The stoma is edematous. It may require some further digital palpation to allow for release. I anticipate ongoing ileus bowel malfunction due to the chronicity of her illness. Joo Gandara M.D., F.A.C.S.
[2021-11-04] MEDS: Metoprolol Tartrate 25 MG Tablet 12.5 MG PO ×2 (09:52→20:07)
[2021-11-04] MEDS: Enoxaparin 40 MG/0.4 ML Syringe SC (09:55)
--- NOTE | 2021-11-04 11:45 | CASEMGMT ---
Addendum entered by Irene Pang 11/04/21 13:07: Pt son will stay with patient for short time upon dc. Original Note: RN ESTELITA in to pt room, pt son Jacky at bedside. Discussed dc planning with patient as she now has new ostomy. Discussed HHC, pt and son are agreeable to this and think this will be beneficial. Answered all questions. Patient was provided a list of [facility] providers including quality and resource use data and consistent with the patient?s preferred geographic region, medical needs, and insurance network. The patient?s preferred provider is [facility]. Pt aware that RN ESTELITA will follow up on Saturday with her. TC to [facility], referral made via .
[2021-11-04] MEDS: 0.9% Normal Saline 1,000 ML 75 ML IV (14:21)
[2021-11-04] MEDS: Acetaminophen 325 MG Tablet 650 MG PO (16:34)
[2021-11-04] MEDS: Losartan Potassium 100 MG Tablet PO (20:06)
[2021-11-04] MEDS: hydroCHLOROthiazide 12.5mg 12.5 MG PO (20:07)
[2021-11-04] MEDS: 0.9% Saline Lock 10 ML Syringe IV (20:23)
[2021-11-04] MEDS: HYDROmorphone 0.5 MG/0.5 ML SYRINGE IV (20:24)
[2021-11-04] MEDS: BENZOCAINE/MENTHOL 1 LOZENGE MUCOUS MEM (20:24)
[2021-11-05] VITALS (8 sets, daily range): BP systolic 143–182; BP diastolic 73–78; PULSE 66–92; RESP 18; TEMP 36.8–37.3; O2SAT 95–96
[2021-11-05] MEDS: HYDROmorphone 0.5 MG/0.5 ML SYRINGE IV (01:31)
[2021-11-05] MEDS: 0.9% Saline Lock 10 ML Syringe IV (01:31)
[2021-11-05] MEDS: Metoprolol Tartrate 5 MG/5 ML Vial IV (01:39)
[2021-11-05] MEDS: 0.9% Normal Saline 1,000 ML 75 ML IV ×2 (03:24→16:01)
[2021-11-05] MEDS: Acetaminophen 325 MG Tablet 650 MG PO ×2 (05:44→22:54)
[2021-11-05 06:07] LABS: Absolute Lymphocyte Count 1.37 X10^3/uL (0.83-4.51); Absolute Neutrophil Count 10.8 X10^3/uL (2.0-7.7); Basophil# 0.04 X10^3/uL; Basophil% 0.3 % (0-1); Eosinophil# 0.08 X10^3/uL; Eosinophils% 0.6 % (0-5); Hematocrit 34.3 % (37-47); Hemoglobin 11.3 g/dL (12.0-15.0); Lymphocyte # 1.37 X10^3/ul (0.83-4.51); Lymphocyte % 10.3 % (19-41); Mean Corp Hgb Conc 32.9 g/dL (32-36); Mean Corpuscular Hgb 29.9 pg (27.0-32.0); Mean Corpuscular Volume 90.7 fL (81-99); Mean Platelet Vol. 8.2 fl (6.2-12.0); Monocyte# 0.87 X10^3/uL; Monocyte% 6.5 % (0-10); NRBC Flagged by Analyzer 0 % (0-5); Neutrophil # 10.77 X10^3/uL (2.7-7.7); Neutrophil % 80.9 % (47-70); Platelet Count 510 K/mm3 (150-450); RBC Distribution Width SD 39.8 fl (35.1-43.9); Red Blood Count 3.78 M/mm3 (4.2-5.4); White Blood Count 13.3 K/mm3 (4.4-11.0)
--- NOTE | 2021-11-05 07:25 | PN.SURG_ITS ---
Subjective Subjective Patient sitting up in chair. No complaints at this time. Appropriate amount of discomfort status post loop colostomy Objective Data Objective Data Stoma pink and viable. Not a lot coming out of it yet. No rebound guarding or peritoneal signs identified. Vital Signs: Vital Signs Temp Pulse Resp BP Pulse Ox O2 Del Method 98.3 F 88 18 171/78 H 96 Room Air 11/05/21 05:32 11/05/21 05:32 11/05/21 05:32 11/05/21 05:32 11/05/21 05:32 11/05/21 05:32 Oxygen Delivery Method Room Air Weight: 154 lb 1.65 oz Body Mass Index (BMI) 22.2 Intake & Output: Intake and Output for Last 24 Hours 11/03/21 11/04/21 11/05/21 23:59 23:59 23:59 Intake Total 3208.58 / 3208.58 2240 / 2270 1148.75 / 1148.75 Output Total 1075 / 1075 1325 / 1725 1100 / 1100 Balance 2133.58 / 2133.58 915 / 545 48.75 / 48.75 Lab / Micro Data Result Diagrams: 11/05/21 05:49 11/04/21 05:50 Labs: Laboratory Results - last 24 hr 11/05/21 05:49: WBC 13.3 H, RBC 3.78 L, Hgb 11.3 L, Hct 34.3 L, MCV 90.7, MCH 29.9, MCHC 32.9, RDW Std Deviation 39.8, RDW Coeff of Annalee 12.0, Plt Count 510 H, MPV 8.2, Immature Gran % (Auto) 1.400 H, Neut % (Auto) 80.9 H, Lymph % (Auto) 10.3 L, Glascock % (Auto) 6.5, Eos % (Auto) 0.6, Baso % (Auto) 0.3, Absolute Neuts (auto) 10.8 H, Absolute Lymphs (auto) 1.37, Nucleated RBC % 0 Assessment & Plan Assessment/Plan (1) Large bowel obstruction: PLAN: We will add some p.o. Oxy IR hopefully try to get her off of IV pain me dication. Await GI function.
[2021-11-05] MEDS: oxyCODONE 5 MG Tablet 10 MG PO ×2 (09:34→17:48)
[2021-11-05] MEDS: Metoprolol Tartrate 25 MG Tablet 12.5 MG PO ×2 (09:35→22:52)
[2021-11-05] MEDS: Enoxaparin 40 MG/0.4 ML Syringe SC (09:35)
[2021-11-05] MEDS: Losartan Potassium 100 MG Tablet PO (22:52)
[2021-11-05] MEDS: hydroCHLOROthiazide 12.5mg 12.5 MG PO (22:52)
[2021-11-06] VITALS (8 sets, daily range): BP systolic 150–159; BP diastolic 62–75; PULSE 76–89; RESP 16–18; TEMP 36.6–37.2; O2SAT 95–97
[2021-11-06] MEDS: oxyCODONE 5 MG Tablet 10 MG PO (00:50)
[2021-11-06] MEDS: 0.9% Normal Saline 1,000 ML 75 ML IV (03:42)
[2021-11-06 05:13] LABS: Absolute Lymphocyte Count 1.32 X10^3/uL (0.83-4.51); Absolute Neutrophil Count 7.3 X10^3/uL (2.0-7.7); Basophil# 0.05 X10^3/uL; Basophil% 0.5 % (0-1); Eosinophil# 0.25 X10^3/uL; Eosinophils% 2.6 % (0-5); Hematocrit 32.2 % (37-47); Hemoglobin 10.8 g/dL (12.0-15.0); Lymphocyte # 1.32 X10^3/ul (0.83-4.51); Lymphocyte % 13.5 % (19-41); Mean Corp Hgb Conc 33.5 g/dL (32-36); Mean Corpuscular Hgb 30.2 pg (27.0-32.0); Mean Corpuscular Volume 89.9 fL (81-99); Mean Platelet Vol. 8.4 fl (6.2-12.0); Monocyte# 0.72 X10^3/uL; Monocyte% 7.4 % (0-10); NRBC Flagged by Analyzer 0 % (0-5); Neutrophil # 7.32 X10^3/uL (2.7-7.7); Neutrophil % 75.1 % (47-70); Platelet Count 411 K/mm3 (150-450); RBC Distribution Width CV 11.9 % (11.6-14.6); RBC Distribution Width SD 38.8 fl (35.1-43.9); Red Blood Count 3.58 M/mm3 (4.2-5.4); White Blood Count 9.8 K/mm3 (4.4-11.0)
--- NOTE | 2021-11-06 06:00 | PN.SURG_ITS ---
Subjective Subjective Patient is feeling much better. Stool and flatus within her bag. Her sore throat is improved as well Objective Data Objective Data Vital Signs: Vital Signs Temp Pulse Resp BP Pulse Ox O2 Del Method 99.0 F 79 18 155/73 H 95 Room Air 11/06/21 03:26 11/06/21 03:26 11/06/21 03:26 11/06/21 03:26 11/06/21 03:26 11/06/21 03:26 Oxygen Delivery Method Room Air Weight: 157 lb 13.616 oz Body Mass Index (BMI) 22.2 Intake & Output: Intake and Output for Last 24 Hours 11/04/21 11/05/21 11/06/21 23:59 23:59 23:59 Intake Total 2240 / 2270 2575.00 / 2575.00 926.25 / 926.25 Output Total 1325 / 1725 1725 / 1725 350 / 350 Balance 915 / 545 850.00 / 850.00 576.25 / 576.25 Lab / Micro Data Result Diagrams: 11/06/21 04:20 11/04/21 05:50 Labs: Laboratory Results - last 24 hr 11/05/21 05:49: WBC 13.3 H, RBC 3.78 L, Hgb 11.3 L, Hct 34.3 L, MCV 90.7, MCH 29.9, MCHC 32.9, RDW Std Deviation 39.8, RDW Coeff of Annalee 12.0, Plt Count 510 H, MPV 8.2, Immature Gran % (Auto) 1.400 H, Neut % (Auto) 80.9 H, Lymph % (Auto) 10.3 L, Carter % (Auto) 6.5, Eos % (Auto) 0.6, Baso % (Auto) 0.3, Absolute Neuts (auto) 10.8 H, Absolute Lymphs (auto) 1.37, Nucleated RBC % 0 11/06/21 04:20: WBC 9.8, RBC 3.58 L, Hgb 10.8 L, Hct 32.2 L, MCV 89.9, MCH 30.2, MCHC 33.5, RDW Std Deviation 38.8, RDW Coeff of Annalee 11.9, Plt Count 411, MPV 8.4, Immature Gran % (Auto) 0.900, Neut % (Auto) 75.1 H, Lymph % (Auto) 13.5 L, Carter % (Auto) 7.4, Eos % (Auto) 2.6, Baso % (Auto) 0.5, Absolute Neuts (auto) 7.3, Absolute Lymphs (auto) 1.32, Nucleated RBC % 0 Physical Exam GI GI Narrative: Abdomen remains moderately distended. Bowel sounds present. No focal tenderness. Significant stool now present at the stoma. 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 The patient had 14 days of obstruction prior to presenting. The loop transverse colostomy currently is functioning. We will initiate an oral diet. Her white blood cell count has normalized. Currently on Zosyn antibiotic therapy for suspected colitis. I anticipate ongoing medical management. I anticipate potential discharge tomorrow with an ongoing surgical outpatient follow-up. I have instructed her that a future colonoscopy per rectum and per both lumens of the stoma will be recommended. This will then help determine a potential etiology and then hopeful ongoing surgical management. Because of the degree of her stricture and length and inflammation she likely will require a left ureteral catheter at the time of definitive surgery. That will be further discussed in the future. Joo Gandara M.D., F.A.C.S.
[2021-11-06] MEDS: Acetaminophen 325 MG Tablet 650 MG PO ×3 (06:12→19:55)
[2021-11-06] MEDS: Enoxaparin 40 MG/0.4 ML Syringe SC (08:04)
[2021-11-06] MEDS: Metoprolol Tartrate 25 MG Tablet 12.5 MG PO ×2 (08:04→21:03)
--- NOTE | 2021-11-06 12:30 | CASEMGMT ---
ALBA CAPONE NOTE: Per Dr Gandara note, pt may be ready to discharge tomorrow. Call placed to Romelia @ [facility]. They received referral for HHC and they are able to accept pt. Pt and son, Jcaky,who is at bedside, made aware. Romelia states they will reach out to Dr Gandara or Dr Lawler to see if they will follow pt for HHC for colostomy. Romelia asked for pt to also have appt scheduled w/Dr Kinsey, stating he will most likely follow for medication mgmt w/HHC as well and he requires pt to be seen in his office following a hospitalization before he will follow pt's for HHC. Assistant Professor Of Psychology scheduled appt w/Dr Kinsey for 11/08 @ 11:20 AM. Pt and son made aware and appt entered into d/c plan. Pt's son, Jacky, states he plans to stay w/pt for about a week to help her as needed. Questions answered. Pt and son deny having any further questions and thanked ALBA CAPONE for the info. Barry DONG RN, CM
--- NOTE | 2021-11-06 13:18 | WOUNDNOTE ---
Addendum entered by Diann Clemente 11/06/21 13:29: stoma size is 2 1/2 Original Note: Assisted patient back into the bed from chair to change ostomy appliance with patient and 3 family members. patient is moving very well. once patient comfortable in bed, gently removed the ostomy appliance. the stoma is beefy red and edematous. there is a bar under stoma currently. will discuss with Dr Gandara to see when this should be removed. stoma measures approx 1 1/2. peristomal skin is intact. abdomen rounded and distended. patient had a moderate amount of liquid brown stool in the appliance. this was emptied prior to removing the appliance to educate the patient and family how to empty the appliance. cleansed the peristomal skin with warm water. pat dry. applied a new flat 2 piece Abena appliance with a small amount of stoma paste. the stoma size is currently at the outer edge of the cutting surface. educated the patient and family that the stoma size will decrease in size once the edema decreases. for this reason, a cut to fit appliance is used. family was shown how to measure the stoma. pt tolerated the appliance change well. will continue education with patient and family until discharge home. pt will also have home health at home for further education. pt and family very appreciative and deny further questions at this time.
[2021-11-06] MEDS: Losartan Potassium 100 MG Tablet PO (21:02)
[2021-11-06] MEDS: hydroCHLOROthiazide 12.5mg 12.5 MG PO (21:02)
[2021-11-07] MEDS: Acetaminophen 325 MG Tablet 650 MG PO (02:54)
[2021-11-07 02:58] VITALS: BP 154/79; PULSE 77; RESP 16; TEMP 36.6; O2SAT 96
--- NOTE | 2021-11-07 05:57 | PCM.PN.SRG ---
Subjective Subjective Patient is pleased. She has complete gas cramps. She has had some stool per rectum. She is being trained on management of her loop transverse colostomy. She has no particular concerns. Objective Data Objective Data Vital Signs: Vital Signs Temp Pulse Resp BP Pulse Ox O2 Del Method 97.8 F 77 16 154/79 H 96 Room Air 11/07/21 02:58 11/07/21 02:58 11/07/21 02:58 11/07/21 02:58 11/07/21 02:58 11/07/21 02:58 Oxygen Delivery Method Room Air Weight: 157 lb 13.616 oz Body Mass Index (BMI) 22.2 Intake & Output: Intake and Output for Last 24 Hours 11/05/21 11/06/21 11/07/21 23:59 23:59 23:59 Intake Total 2575.00 / 2575.00 2026.25 / 2026.25 650 / 650 Output Total 1725 / 1725 1050 / 1050 Balance 850.00 / 850.00 976.25 / 976.25 650 / 650 Lab / Micro Data Result Diagrams: 11/06/21 04:20 11/04/21 05:50 Physical Exam Resp normal respiratory effort GI GI Narrative: Softly distended, no significant change from yesterday, stool per colostomy. Assessment & Plan Assessment/Plan (1) Large bowel obstruction: PLAN: I anticipate leaving the stomal bar in place until Saturday, November 13, 2021. We will remove it in the office. I anticipated future colonoscopy done per rectum and per each limb of the loop transverse colostomy. We will then be able to better determine a definitive procedure for her. She has had an opportunity to ask and have questions answered. I anticipate discharge today on a short 3-day course of oral antibiotic. Joo Gandara M.D., F.A.C.S.
--- NOTE | 2021-11-07 06:00 | DCINST_ITS ---
Discharge Instructions Procedure General Surgery Diet Discharge Diet: Light diet - advance as tolerated (if you have questions about your diet instructions, please talk to you doctor.) Activity Discharge Activity: May Not Drive (for 3-5 days or while taking narcotic pain medicine.) May shower in (days): 1 Lifting Restrictions: 10 pounds Dressing / Incision Call your doctor if your incision/area has: Continuous Slow Oozing, Sudden Increased Bleeding, Increased Pain/ Swelling, Increased Redness and Foul Smelling Discharge Call your doctor if you observe: Fever of 101 or Higher Suture Line Care: Avoid Pulling/Pushing and Avoid Pinching/Bending Additional Dressing/Incision Instructions:: Stomal care as per instructions please. Follow Up Care Please Follow Up With: Joo Gandara MD When: Call [phone] to make an appointment to be seen on Saturday, November 13, 2021 Test Results: Test results from this visit will be discussed in further detail at your follow- up appointment, if applicable. Discharge Plan Admission Admit Date/Time: 11/02/21 17:22 Primary Reason for Your Visit: Large bowel obstruction of the sigmoid colon Attending Provider: Rolando Lawler Primary Care Provider: Oskar Kinsey Chi Discharge Orders/Prescriptions Prescriptions: Continued multivitamin Tablet 1 tab PO DAILY amoxicillin-pot clavulanate 875-125 mg tablet 1 tab PO BID Label Comments: TAKE 1 TABLET BY MOUTH TWICE DAILY FOR 7 DAYS metoprolol tartrate 25 mg tablet 12.5 mg PO BID Label Comments: TAKE 1/2 (ONE-HALF) TABLET BY MOUTH TWICE DAILY FOR 30 DAYS (STOP LOSARTAN) valsartan-hydrochlorothiazide 320-12.5 mg tablet 1 tab PO QHS cholecalciferol (vitamin D3) [Vitamin D3] 25 mcg (1,000 unit) Tablet 25 mcg PO DAILY Referrals / Follow Up: Oskar Kinsey Chi, MD [Primary Care Provider] - 11/08/21 11:20 am Disposition Disposition (needs filled in before D/C Order can be placed): Home, Self Care
--- NOTE | 2021-11-07 08:26 | DS.PCM_ITS ---
Providers Date of Admission: 11/02/21 Date of Discharge: 11/07/21 Primary Care Physician: Dr. Oskar Kinsey MD Attending Physician: Dr. Joo Gandara MD Consultations 11/03/21 18:47 Consult: Onc/Wound/creative recruiter Routine Comment: Reason for Consult:: stoma Reason For Visit: ABDOMIN PAIN, COLLITIS Diagnosis Discharge Diagnosis (1) Large bowel obstruction: Status: Acute Code(s): K56.609 - Unspecified intestinal obstruction, unspecified as to partial versus complete obstruction Medications at Discharge Home Medications amoxicillin 875 mg-potassium clavulanate 125 mg tablet 1 tab PO BID 11/02/21 cholecalciferol (vitamin D3) 25 mcg (1,000 unit) tablet (Vitamin D3) 25 mcg PO DAILY 11/02/21 metoprolol tartrate 25 mg tablet 12.5 mg PO BID 11/02/21 multivitamin 1 tab PO DAILY 11/02/21 valsartan 320 mg-hydrochlorothiazide 12.5 mg tablet 1 tab PO QHS Check with primary doctor 11/02/21 Hospital Course Operations - (Diverting loop transverse colostomy) Summary of Care Provided Minutes Spent on Discharge: 30 Hospital Course: Patient is a 76 y/o F who presented with a 10 day history of worsening abdominal pain. Patient was admitted and placed on IV antibiotics and IV fluids. Patient demonstrated no improvement of her symptoms the following day. A repeat CT scan of the abdomen/pelvis on 11/03 demonstrated diffuse thickening and mass effect involving the rectosigmoid colon, marked distention of the colon with large amount of fecal material down to the sigmoid colon and gastrografin noted within the bladder emptied with a colovesical fistula. Ng tube was placed. Patient was taken to surgery by Dr. Gandara and Dr. Lawler on 11/03/21 for a Diverting loop transverse colostomy. Patient tolerated the procedure well. POD #1, patient continued to note some distention and overall not feeling well. On POD #3, patient had moderate amount of stool output and flatus. She noted improvement in her diet. She noted improvement with her abdominal pain. Upon discharge, she was having good stool output within the stoma and flatus. She is tolerating her transitional diet. Her pain is controlled on Tylenol. She has had stool output from her rectum. Patient voices readiness to be discharged to home. Her son will be staying with her. She will follow-up with our office as an outpatient on Saturday to potentially remove the bar of the stoma. She will need a future colonoscopy with Dr. Gandara. Weight / BMI Weight Weight: 157 lb 13.616 oz Body Mass Index (BMI) 22.2 ABG / Lab / Microbiology Data Result Diagrams: 11/06/21 04:20 11/04/21 05:50 D/C Instructions Discharge Diet: Light diet - advance as tolerated (if you have questions about your diet instructions, please talk to you doctor.) May shower in (days): 1 Call your doctor if your incision/area has: Continuous Slow Oozing, Sudden Increased Bleeding, Increased Pain/ Swelling, Increased Redness and Foul Smelling Discharge Call your doctor if you observe: Fever of 101 or Higher Suture Line Care: Avoid Pulling/Pushing and Avoid Pinching/Bending Additional Dressing/Incision Instructions: Stomal care as per instructions please. Please Follow Up With: Joo Gandara MD When: Call [phone] to make an appointment to be seen on Saturday, November 13, 2021 Meaningful Use Info Meaningful Use Diagnoses (Choose all that apply): None applicable Discharge Plan Admission Admit Date/Time: 11/02/21 17:22 Primary Reason for Your Visit: Large bowel obstruction of the sigmoid colon Attending Provider: Rolando Lawler Primary Care Provider: Oskar Kinsey Chi Discharge Orders/Prescriptions Prescriptions: Continued multivitamin Tablet 1 tab PO DAILY amoxicillin-pot clavulanate 875-125 mg tablet 1 tab PO BID Label Comments: TAKE 1 TABLET BY MOUTH TWICE DAILY FOR 7 DAYS metoprolol tartrate 25 mg tablet 12.5 mg PO BID Label Comments: TAKE 1/2 (ONE-HALF) TABLET BY MOUTH TWICE DAILY FOR 30 DAYS (STOP LOSARTAN) valsartan-hydrochlorothiazide 320-12.5 mg tablet 1 tab PO QHS cholecalciferol (vitamin D3) [Vitamin D3] 25 mcg (1,000 unit) Tablet 25 mcg PO DAILY Referrals / Follow Up: Oskar Kinsey Chi, MD [Primary Care Provider] - 11/08/21 11:20 am Disposition Disposition (needs filled in before D/C Order can be placed): Home Health Service Charges/Coding Visit Charges Inpatient E&M: 69498 Disch Hosp (No charge; post-op)
--- NOTE | 2021-11-07 08:27 | WOUNDNOTE ---
According to the progress notes, Dr Gandara plans to keep the stomal bar in place until 11/13/21. the current appliance is intact, but there is concern for leak since the stoma size is just beyond the cutting surface. appliance changed to a larger flange and pouch. patient very attentive and asking questions with appliance change. pt wants to be independent with emptying and changing the appliance if possible. appliance gently removed. cleansed the peristomal skin with warm water. pat dry. applied a new 2 piece flat Abena appliance (flange #[id number] and pouch #[id number]) with a paste ring and a small amount of stoma paste. pt tolerated well. plan to have patient continue practicing emptying the appliance today before discharge. Pt denies further needs at this time. see stoma picture.
--- NOTE | 2021-11-07 08:56 | WOUNDNOTE ---
stoma photo: abdomen
[2021-11-07 08:58] VITALS: BP 158/81; PULSE 83; RESP 18; TEMP 36.7; O2SAT 97
[2021-11-07 09:06] VITALS: PULSE 83
[2021-11-07] MEDS: Enoxaparin 40 MG/0.4 ML Syringe SC (09:06)
[2021-11-07] MEDS: Metoprolol Tartrate 25 MG Tablet 12.5 MG PO (09:06)
--- NOTE | 2021-11-07 10:31 | CASEMGMT ---
Addendum entered by Irene Pang 11/07/21 10:37: Faxed supply list for ostomy to [facility]. Pt to be sent home with 4 appliances. to remove stoma bar on Saturday. Info relayed to [facility] Joaquin. Original Note: ALBA CM in to pt room, pt is aware that [facility] will be out to see her on . Answered her questions regarding [facility]. She states her son will still be staying with her for a short time to assist. She feels comfortable with the ostomy and states she will have another lesson before she leaves. Pt denies further needs.
--- NOTE | 2021-11-07 10:48 | PHA.DC.MR ---
Pharmacy Service has performed discharge medication reconciliation for this patient. The patient's discharge medication list was reviewed for discrepancies and discrepancies were resolved. Home Medications amoxicillin 875 mg-potassium clavulanate 125 mg tablet 1 tab PO BID 11/02/21 cholecalciferol (vitamin D3) 25 mcg (1,000 unit) tablet (Vitamin D3) 25 mcg PO DAILY 11/02/21 metoprolol tartrate 25 mg tablet 12.5 mg PO BID 11/02/21 multivitamin 1 tab PO DAILY 11/02/21 valsartan 320 mg-hydrochlorothiazide 12.5 mg tablet 1 tab PO QHS Check with primary doctor 11/02/21
--- NOTE | 2021-11-07 11:00 | WOUNDNOTE ---
Pt was able to empty the ostomy appliance and clean the end of the pouch without assistance. pt states she is already feeling more comfortable about care for the stoma at home. Pt very appreciative of care. pt also aware to call this nurse if there are issues with leakage, skin irritation, etc. at home. pt was given number to call for appt.
== END 2021-11-07 12:08 | disposition home health service (06) | DRG 331 ==
LOC: ED 15:55 → MS3 16:06
PROVIDERS: Physician Assistant; Surgery; Admitting Provider Surgery; Emergency Provider Emergency Medicine; PCP Family Medicine Geriatric Medicine; Visit Provider Surgery
PROC: 0D1E4Z4 Bypass Large Intestine to Cutaneous, Percutaneous Endoscopic Approach (ICD-10-PCS; CPT 44188; principal; 2021-11-03 14:40)
DX: K56.699 Other intestinal obstruction unspecified as to partial versus complete obstruction (principal); I10 Essential (primary) hypertension; Z79.899 Other long term (current) drug therapy; R33.9 Retention of urine, unspecified
CPT/HCPCS: 36415; 74018; 74177; 80048; 81001; 83605; 83735; 84100; 85025; 87086; 87088; 87186; 93005; 99284; J7030; J7120; Q9967; A4216; J2405; J3490

== ENCOUNTER 2021-12-12 08:07 | Day surgery (SDC) | payer MEDICARE, SELFPAY ==
[2021-12-12] VITALS (7 sets, daily range): BP systolic 119–138; BP diastolic 64–107; PULSE 72–83; RESP 16–18; TEMP 36.4–36.9; O2SAT 100; BMI 20.4
--- NOTE | 2021-12-12 08:23 | PCM.HP.STD ---
[facility] - [facility] General Date of Service: 12/12/21 Chief Complaint: Sigmoid colon obstruction [facility] Narrative MAIKOL DIETZ, is a 76 F who presents for colonoscopic evaluation. On November 02, 2021 she had an emergency transverse loop colostomy in left upper quadrant because of colonic obstruction from the sigmoid colon of undetermined etiology. She returns now for colonoscopic evaluation. She has been much improved since her transverse colostomy. [facility] Medical History (Updated 12/07/21 @ 11:56 by Kristin Brooks) Colitis History of edema Hx of vaginal delivery Hypertension Non-smoker Post-menopausal Wears dentures Wears glasses Home Medications cholecalciferol (vitamin D3) 25 mcg (1,000 unit) tablet (Vitamin D3) 25 mcg PO DAILY 11/02/21 [History Last Taken 11/01/21] metoprolol tartrate 25 mg tablet 12.5 mg PO BID 11/02/21 [History Last Taken 11/02/21] multivitamin 1 tab PO DAILY 11/02/21 [History Last Taken 11/01/21] valsartan 320 mg-hydrochlorothiazide 12.5 mg tablet 1 tab PO QHS Check with primary doctor 11/02/21 [History Last Taken 11/01/21] Allergy/AdvReac Type Severity Reaction Status Date / Time No Known Allergies Allergy Verified 12/07/21 11:45 Surgical History (Updated 12/07/21 @ 11:56 by Kristin Brooks) History of cranial surgery S/P colostomy Social History (Updated 11/13/21 @ 14:07 by Niki Bates) Smoking Status: Never smoker substance use type: does not use ROS Constitutional Constitutional: Reports systems reviewed and no addt'l complaints, except as documented Cardiovascular Cardiovascular: Denies chest pain Respiratory/Chest Respiratory/Chest: Denies shortness of breath at rest Gastrointestinal Gastrointestinal: Denies abdominal pain, change in bowel habits, hematochezia or melena Assessment & Plan Assessment/Plan (1) Large bowel obstruction: PLAN: Plan to proceed with a colonoscopy done per rectum and per both sides of the loop transverse colostomy. She is aware of the technique, benefit, risk and alternatives. She has had an opportunity to ask and have questions answered. We will proceed as noted. Joo Gandara M.D., F.A.C.S.
[2021-12-12] MEDS: Lactated Ringers 1,000 ML 15 ML IV (08:41)
--- NOTE | 2021-12-12 09:15 | COLBX_PTH ---
PATIENT: MAIKOL DIETZ LOC: EN U#:[id number] AGE/SX: 76/F ROOM: RE12/12/[address]: Dr. Joo Gandara MD : 1945 BED: DIS: 12/12/2021 SPEC #: [id number] RECD: 12/12/21 11:50 STATUS: HALLIE REMarky #: [id number] CARTER: 12/12/21 09:[address]: Joo Gandara DEPT: SURGICAL PATHOLOGY RECD BY: Joseline Cantu ENTERED: 12/12/21 12:37 SP TYPE: COLON BX OTHR DR: Dr. Oskar Kinsey MD Tissues: Sigmoid colon biopsy Procedures: Surgery Specimen Level IV HEADER OPERATION: Colonoscopy (MAC) with biopsy and tattoo PRE-OP DIAGNOSIS: Large bowel obstruction TISSUE SUBMITTED: Sigmoid stricture biopsy MICROSCOPIC DIAGNOSIS Sigmoid stricture, biopsy: Fragments of benign colonic mucosa with mild architectural change. AM:libra 12/13/2021 MICROSCOPIC DESCRIPTION Slides are reviewed. GROSS DESCRIPTION Received in fixative is one container labeled with the patient's name and designated sigmoid stricture biopsy. The specimen consists of two irregular fragments of light hansen soft tissue that in aggregate measure 0.5 x 0.4 x 0.1 cm. The specimen is totally submitted in one cassette. / MELO:libra 12/12/2021 TC:5 CPT: 01634
--- NOTE | 2021-12-12 10:20 | OP.COLON_ITS ---
Patient Name: Pia Pacheco Procedure Date: 12/12/2021 9:47 AM Date of : 1945 Age: 76 Procedure: Colonoscopy Indications: OTHER Providers: Joo Gandara MD Medicines: See the Anesthesia note for documentation of the administered medications Patient Profile: Last Colonoscopy: none. The patient's first colonoscopy is today. Complications: No immediate complications. Procedure: Pre-Anesthesia Assessment: - Prior to the procedure, a History and Physical was performed, and patient medications and allergies were reviewed. The patient's tolerance of previous anesthesia was also reviewed. The risks and benefits of the procedure and the sedation options and risks were discussed with the patient. All questions were answered, and informed consent was obtained. Prior Anticoagulants: The patient has taken no previous anticoagulant or antiplatelet agents. ASA Grade Assessment: II - A patient with mild systemic disease. After reviewing the risks and benefits, the patient was deemed in satisfactory condition to undergo the procedure. After I obtained informed consent, the scope was passed under direct vision. Throughout the procedure, the patient's blood pressure, pulse, and oxygen saturations were monitored continuously. The was introduced through the anus and advanced to the cecum, identified by appendiceal orifice and ileocecal valve. The colonoscopy was performed without difficulty. The patient tolerated the procedure well. The quality of the bowel preparation was good. The ileocecal valve and the appendiceal orifice were photographed. Scope In: 9:56:44 AM Scope Out: 10:11:08 AM Total Procedure Duration Time 0 hours 14 minutes 24 seconds Findings: Hemorrhoids were found on perianal exam. There was evidence of a patent double-barrel colostomy in the distal transverse colon. This was characterized by healthy appearing mucosa. A benign-appearing, intrinsic severe stenosis was found in the sigmoid colon and was non-traversed. Biopsies were taken with a cold forceps for histology. Area was tattooed with an injection of Latrice ink. The exam was otherwise normal throughout the examined colon. The examination was performed per rectum. Healthy appearing rectum and sigmoid was identified but 20 cm of stenosis was encountered that could not be transgressed. Patient has a left upper quadrant loop transverse colostomy. Going to in the distal aspect of the loop but he was able to get the scope to go down the transverse colon but again the stricture was identified. Biopsy was obtained at this time and that area was marked and tattooed with Latrice ink 2 injections. I then performed a colonoscopy through the loop transverse colostomy and went proximally. The proximal transverse colon ascending colon and cecum did not appear to be remarkable. Impression: - Hemorrhoids found on perianal exam. - Patent double-barrel colostomy with healthy appearing mucosa in the distal transverse colon. - Stricture in the sigmoid colon. Biopsied. Tattooed. 20 cm Recommendation: - Discharge patient to home. - Resume previous diet. - Continue present medications. - Repeat colonoscopy in 10 years for screening purposes. - Return to my office in 1 week. Procedure Code(s): --- Professional --- 97709, Colonoscopy, flexible; with directed submucosal injection(s), any substance 32728, Colonoscopy, flexible; with biopsy, single or multiple Diagnosis Code(s): --- Professional --- K64.9, Unspecified hemorrhoids Z93.3, Colostomy status K56.699, Other intestinal obstruction unspecified as to partial versus complete obstruction CPT copyright 2017 [employer]. All rights reserved. The codes documented in this report are preliminary and upon superintendent marine review may be revised to meet current compliance requirements. Joo Gandara MD 12/12/2021 10:20:27 AM This report has been signed electronically. Number of Addenda: 0 Note Initiated On: 12/12/2021 9:47 AM
--- NOTE | 2021-12-12 10:21 | OP.CCLET_ITS ---
12/12/2021 Oskar Kinsey MD [address] [place] [address] Re : Colonoscopy procedure for Pia Pacheco Dear Dr. Kinsey This procedure was performed on Sunday, December 12, 2021. My impressions and recommendations are as follows: Impressions : - Hemorrhoids found on perianal exam. - Patent double-barrel colostomy with healthy appearing mucosa in the distal transverse colon. - Stricture in the sigmoid colon. Biopsied. Tattooed. 20 cm Recommendations : - Discharge patient to home. - Resume previous diet. - Continue present medications. - Repeat colonoscopy in 10 years for screening purposes. - Return to my office in 1 week. My findings are described in the full procedure note, which is enclosed. If I can be of further assistance, please feel free to contact me at Doctor phone number(s): Work: . Sincerely, Joo Gandara MD 12/12/2021 10:20:27 AM This report has been signed electronically.
== END 2021-12-12 11:15 | disposition home or self-care (01) ==
LOC: EN 08:07 → AC 08:11
PROVIDERS: PCP Family Medicine Geriatric Medicine; Referring Provider Family Medicine Geriatric Medicine; Visit Provider Surgery
PROC: 0DJD8ZZ Inspection of Lower Intestinal Tract, Via Natural or Artificial Opening Endoscopic (ICD-10-PCS; CPT 45378; principal; 2021-12-12 09:10)
DX: K56.699 Other intestinal obstruction unspecified as to partial versus complete obstruction (principal); Z93.3 Colostomy status; K64.9 Unspecified hemorrhoids; I10 Essential (primary) hypertension; Z79.899 Other long term (current) drug therapy
CPT/HCPCS: 45381; 45380; 88305; J7120; A4648; J2405

== ENCOUNTER 2021-12-25 05:12 | Inpatient (IN) | payer MEDICARE, SELFPAY ==
[2021-12-22 08:53] LABS: Hematocrit 31.6 % (37-47); Hemoglobin 10.1 g/dL (12.0-15.0); Mean Corpuscular Hgb 29.8 pg (27.0-32.0); Mean Corpuscular Volume 93.2 fL (81-99); Mean Platelet Vol. 8.5 fl (6.2-12.0); Platelet Count 503 K/mm3 (150-450); RBC Distribution Width CV 13.5 % (11.6-14.6); Red Blood Count 3.39 M/mm3 (4.2-5.4); White Blood Count 12.8 K/mm3 (4.4-11.0)
[2021-12-22 09:17] LABS: Anion Gap 8 (5-15); BUN 14 mg/dL (7-18); BUN/Creat Ratio 14.5 RATIO (10-20); Calcium,Total 9.8 mg/dL (8.5-10.1); Chloride 101 mmol/L (98-107); Creatinine, Serum 0.96 mg/dL (0.55-1.02); EST Glomerular Filtration Rate 60 mL/min (>60); Est Glom Filt Rate - Afr Amer 73 mL/min (>60); Glucose 109 mg/dL (74-106); Potassium 3.7 mmol/L (3.5-5.1); Sodium Level 137 mmol/L (136-145)
[2021-12-22 09:21] LABS: Magnesium 2.2 mg/dL (1.6-2.6)
[2021-12-25] VITALS (20 sets, daily range): BP systolic 90–135; BP diastolic 41–59; PULSE 60–72; RESP 14–16; TEMP 36.6–37.7; O2SAT 94–100; BMI 20.1
--- NOTE | 2021-12-25 | FALS_PTH ---
PATHOLOGY RESULTS PATIENT: MAIKOL DIETZ LOC: MS3 U#:[id number] AGE/SX: 76/F ROOM: ID319 RE12/25/[address]: Dr. Joo Gandara MD : 1945 BED: 1 DIS: 12/28/2021 SPEC #: [id number] RECD: 12/25/21 11:04 STATUS: HALLIE MADRIDMarky #: [id number] CARTER: 12/25/21 00:[address]: Joo Gandara DEPT: SURGICAL PATHOLOGY RECD BY: Glenna Leon ENTERED: 12/25/21 11:58 SP TYPE: FALL TUBES OTHR DR: Dr. Oskar Kinsey MD Tissues: Colon, NOS Fallopian tube Colon Donuts Colon Donuts Procedures: Surgery Specimen Level III Surgery Specimen Level V HEADER OPERATION: Laparoscopic converted to hand assist left colectomy PRE-OP DIAGNOSIS: Sigmoid stricture causing large bowel, obstruction, abnormal left ovary TISSUE SUBMITTED: A ? Sigmoid colon, B ? Fallopian tube and right ovary, C ? Distal donut, D ? Proximal donut MICROSCOPIC DIAGNOSIS A. 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 Stoma with reparative and reactive change. Three out of three lymph nodes with no pathologic change. B. Ovary and fallopian tube, salpingo-oophorectomy: Ovary with cystadenofibroma. Fallopian tube with benign paratubal cyst. C. Distal mucosal donut, excision: No pathologic change. D. Proximal mucosal donut, excision: No pathologic change. AM:libra 12/27/2021 MICROSCOPIC DESCRIPTION Slides are reviewed. GROSS DESCRIPTION A - Received in fixative is one container labeled with the patient's name and designated sigmoid colon. The specimen consists of a segment of bowel with surrounding shaggy fibroadipose tissue. No gross perforations are identified. An area of firmness is noted approximately 11 cm from one end. The serosa is this area is inked in black ink and the specimen sectioned. No distinct mass lesion is identified. The mucosa is light hansen in color and thrown into normal folds. No mucosal mass lesions are identified. This gross impression is conveyed to the surgeon intraoperatively. One end of the bowel contains a stapled stoma. The attached fibrofatty tissue does not contain mass lesions. Multiple diverticula are identified. One diverticulum is ruptured into subserosal fat. Pure Pak Machine Operator sections are submitted in seven cassettes as follows: 1 ? stoma, 2 & 3 ? possible ruptured diverticulum, 4-6 ? additional sections of diverticulum, 7 ? pericolic fatty tissue. B - Received in fixative is one container labeled with the patient's name and designated right fallopian tube and right ovary. The specimen consists of a fallopian tube measuring 5 cm in length and 1 cm in average diameter. A normal fimbriated end is present. Serial sections do not reveal mass lesions. The smooth, glistening cystic ovary measures 4 x 3.5 x 2 cm. Serial sections reveal multiple cysts ranging in size from 0.2 to 2.2 cm and containing clear fluid. Pure Pak Machine Operator sections are submitted as follows: 1??fallopian tube, 2-5 - ovary. C - Received in fixative is one container labeled with the patient's name and designated distal donut. The specimen consists of a hansen mucosal donut measuring 2.5 cm in diameter and 1.5 cm in thickness. No mucosal mass lesions are identified. Pure Pak Machine Operator sections are submitted in one cassette. D - Received in fixative is one container labeled with the patient's name and designated proximal donut. The specimen consists of a hansen mucosal donut measuring 2.5 cm in diameter and 1.1 cm in thickness. No mucosal mass lesions are identified. Pure Pak Machine Operator sections are submitted in one cassette. / AM:libra 12/26/2021 TC:2 CPT: 05371 x2, 98500 x2
[2021-12-25] MEDS: Acetaminophen 500 MG Tablet 1000 MG PO ×3 (06:34→22:41)
[2021-12-25] MEDS: Lactated Ringers 1,000 ML 40 ML IV (06:34)
[2021-12-25] MEDS: Gabapentin 600 MG Tablet PO (06:34)
[2021-12-25] MEDS: Magnesium 1 GM over 15 mins IV (06:34)
[2021-12-25 06:35] LABS: Bedside Glucose 106 mg/dL (74-106)
--- NOTE | 2021-12-25 07:12 | PCM.HP.BLA ---
History and Physical Date of Admission: 12/25/21 Chief Complaint: Colostomy Accompanied by: Son Is patient in pain?: No Allergies No Known Allergies Allergy (Verified 12/19/21 12:51) Medications cholecalciferol (vitamin D3) 25 mcg (1,000 unit) tablet (Vitamin D3) 25 mcg PO DAILY 11/02/21 [History Confirmed 12/19/21] metoprolol tartrate 25 mg tablet 12.5 mg PO BID 11/02/21 [History Confirmed 12/19/21] multivitamin 1 tab PO DAILY 11/02/21 [History Confirmed 12/19/21] valsartan 320 mg-hydrochlorothiazide 12.5 mg tablet 1 tab PO QHS Check with primary doctor 11/02/21 [History Confirmed 12/19/21] metronidazole 500 mg tablet 500 mg PO .COMPLEX #6 tabs 12/19/21 [Rx Confirmed 12/19/21] neomycin 500 mg tablet 500 mg PO .COMPLEX pre-op antibiotics #6 tabs 12/19/21 [Rx Confirmed 12/19/21] Post menopausal: Yes PFSH Medical History? Colitis History of edema Hx of vaginal delivery Hypertension Non-smoker Post-menopausal Wears dentures Wears glasses Surgical History? History of cranial surgery S/P colonoscopy S/P colostomy Social History? Smoking Status:? Never smoker substance use type:? does not use HPI HPI Surgical H&P: Yes HPI: Patient is a 76 y/o F I am following s/p diverting loop transverse colostomy by Dr. Gandara on 11/03/21. Patient tolerated the procedure well. Patient is tolerating her diet well. She notes good stool output from the colostomy. She notes flatus in her stomal bag. She is tolerating the transitional diet. She has completed her course of antibiotics. She notes right ankle swelling. She has not been elevating her leg. She noted the swelling occurring following her colonoscopy. Dr. Gandara performed a colonoscopy on 12/12/21. Patient tolerated the procedure well. Findings included hemorrhoids, patent double-barrel colostomy with healthy appearing mucosa distal transverse colon, stricture in the sigmoid colon, biopsied and tattooed at 20 cm. Pathology demonstrated benign tissue. She dneies abdominal pain or discomfort. She notes good stool output from her stoma. ROS General General: No weight change, appetite, fatigue, colon cancer, breast cancer or weakness HEENT HEENT: No difficulty swallowing, eye injury, eye surgery, swollen glands or hoarseness Endo Endocrine: No thyroid disease, diabetes mellitus, thyroid cancer, Hair loss, heat intolerance or cold intolerance Skin Skin: No rash or changing moles Breast Breast: No left breast lump, right breast lump, nipple discharge, breast pain, abnormal mammogram, abnormal US or breast enlargement Musc Musculoskeletal: No back problems, arthritis, rheumatoid arthritis, gout or joint pain Cardio Cardiovascular: No murmur, pacemaker, heart disease, atrial fibrillation, high blood pressure, heart attack, heart stent, palpitations, shortness of breat with exertion or chest pain Psych Psychiatric: No depression, anxiety or hearing voices Resp Respiratory: No shortness of breath, No sleep apnea, No cough, No COPD, No asthma, No emphysema and No wheezing Gastro Gastrointestinal: No abdominal pain, No nausea or vomiting, Yes diarrhea, No constipation, No blood in stool, No acid reflux, No hemorrhoids, No ulcers, No gallbladder problem and No black,tarry stools Te Hematologic: No blood thinners, No blood disorders, No bleeding, No anemia and No blood clots Neuro Neurologic: Yes system reviewed and no additional complaints, except as documented and No weakness Exam Const General: cooperative, healthy appearing, comfortable and no acute distress [facility] Head: normal to inspection Eyes General: appearance normal, both eyes and all related structures Neck Neck: normal visual inspection Neck mass: No Resp Effort & Inspection: normal respiratory effort and able to speak in complete sentences Auscultation: clear to auscultation bilaterally Cardio Rate: regular rate Rhythm: regular rhythm GI Inspection: normal to inspection Palpation: soft Other: colostomy present Musc Cervical Spine: normal cervical lordosis Skin General: no rashes or lesions noted Neuro General: no focal motor deficits and CN's II-XI intact bilaterally Extrem General: normal to inspection Psych Appearance: grossly normal Affect: normal affect Assessment and Plan Assessment and Plan (1) Sigmoid stricture: ?Status:?Acute ?Plan: Dr. Gandara also evaluated this patient. Dr. Gandara will plan to perform an ERAS laparoscopic possible conversion to hand assist possible conversion to open left hemicolectomy with mobilization of the splenic flexure, colostomy takedown with TAP block, possible ileostomy creation and left ureteral stent placement by Dr. Muniz. Procedure details, risks and benefits have been explained to the patient and her son. Patient has been provided the ERAS booklet instructions, bowel prep and antibiotic prep. I have reviewed the pre-surgical drink as well. Patient has had the opportunity to ask and have questions answered. Patient verbally understands and agrees with the plan. Antibiotic prep has been sent to the pharmacy. (2) Large bowel obstruction: ?Status:?Acute ? ? ? Medications: New metronidazole ?500 mg PO Take 2 (two) tablets at 1300, 1500, 2300 6 tabs 0RF ? ? neomycin ?Take two (2) 500 mg tablets PO at 1300, 1500, 2300 6 tabs 0RF pre-op antibiotics I have seen and repeat examined the patient in the office as well. I performed a colonoscopy. She had a nonpassable stricture of the sigmoid colon. Was able to get the scope 20 cm from from the anus prior to stricturing. She has a loop transverse colostomy in the left upper quadrant was able to inspect both limbs. The patient previously during her emergency hospitalization had to CT imaging both questioning possible air in the vaginal cuff/endometrium however the patient continues to deny any pneumaturia or air or blood or stool per urine or vagina. Anticipate cystoscopy and left ureteral catheter placement by Dr Muniz at the initiation of the operation. Then plan to proceed with hopeful takedown of her colostomy sigmoid colectomy and hopeful primary anastomosis. She is aware that we will initiate this laparoscopically and plan of bilateral transverses abdominis plane block. She is aware that there are no guarantees we can achieve this laparoscopically and may need to convert to a hand-assisted or open approach. She is aware that further diversion may be required. She has had an opportunity to ask and have questions answered. She is taking her oral bowel prep and oral antibiotics and nutritional supplements per ERAS protocol. We will proceed as noted. Joo Gandara M.D., F.A.C.S.
--- NOTE | 2021-12-25 07:16 | EX.PCM.DISCH ---
Discharge Instructions Procedure General Surgery Diet Discharge Diet: Light diet - advance as tolerated (if you have questions about your diet instructions, please talk to you doctor.) Activity Discharge Activity: May Not Drive (for 3-5 days or while taking narcotic pain medicine.) Lifting Restrictions: 10 pounds Additional Activity Instructions:: Please keep your dressings clean and dry. No showers or tub baths until released to do so after your office appointments. I anticipate an office appointment tomorrow Saturday for wound inspections and dressing change to assist you. If you have excessive drainage on your dressings you may proceed with changing the dry gauze cover dressing as you watched me do in the hospital with gauze and paper tape Dressing / Incision Call your doctor if your incision/area has: Continuous Slow Oozing, Sudden Increased Bleeding, Increased Pain/ Swelling, Increased Redness and Foul Smelling Discharge Call your doctor if you observe: Fever of 101 or Higher Suture Line Care: Avoid Pulling/Pushing and Avoid Pinching/Bending Follow Up Care Please Follow Up With: Joo Gandara MD When: Call [phone] to make an appointment approximately noon tomorrow December 29, 2021. Please make an additional appointment with Betsy on January 01, 2022. Test Results: Imodium A-D may be utilized for progressive or severe diarrhea per package instructions. You may utilize steps using a handrail and going up one at a time Discharge Plan Admission Admit Date/Time: 12/25/21 05:12 Primary Reason for Your Visit: Colitis and sigmoid obstruction and presence of colostomy Attending Provider: Joo Gandara Primary Care Provider: Oskar Kinsey [employer] Providers: Maritna Avalos Discharge Orders/Prescriptions Prescriptions: Continued neomycin 500 mg tablet 500 mg PO .COMPLEX Qty: 6 0RF Rx Instructions: Take two (2) 500 mg tablets PO at 1300, 1500, 2300 multivitamin Tablet 1 tab PO DAILY metoprolol tartrate 25 mg tablet 12.5 mg PO BID Label Comments: TAKE 1/2 (ONE-HALF) TABLET BY MOUTH TWICE DAILY FOR 30 DAYS (STOP LOSARTAN) valsartan-hydrochlorothiazide 320-12.5 mg tablet 1 tab PO QHS cholecalciferol (vitamin D3) [Vitamin D3] 25 mcg (1,000 unit) Tablet 25 mcg PO DAILY metronidazole 500 mg tablet 500 mg PO .COMPLEX Rx Instructions: 500 mg PO Take 2 (two) tablets at 1300, 1500, 2300 Referrals / Follow Up: Oskar Kinsey Chi, MD [Primary Care Provider] -
[2021-12-25] MEDS: Cefotetan 2 GM in 0.9% NS 100 ML IV (07:20)
--- NOTE | 2021-12-25 07:50 | OP.PCM_ITS ---
Report of Operation Date of Procedure: 12/25/21 Pre-Operative Diagnosis: Diverticulitis bowel obstruction Post-Operative Diagnosis: Same Surgery/Procedure Performed:: Cystoscopy and left ureteral catheter placement Description of Surgical Findings:: 76-year-old female she is going to have a general surgery procedure with a resection of a bowel apparently the general surgeon has a requested I placed a ureteral catheter to assist with the identification of the left ureter during the procedure from severe inflammation from the colon Patient was taken back to the operating room after smooth induction of general anesthesia she was placed in dorsolithotomy position the urethra and vaginal area prepped and draped in usual sterile fashion on exam she does have a significant grade 3 cystocele. I went inside the bladder with a 30 degree lens on inspection the bladder was normal besides a large cystocele the trigone was normal there is no tumors or stones or inflammation within the bladder I then cannulated the left ureteral orifice with a 5 Micronesian open-ended catheter and a Glidewire and advanced the catheter up into the left side and then once the ureteral catheter was in place remove the Glidewire put a catheter in the bladder and secured the ureteral catheter to the Hernandes catheter. And then at this point the surgery was turned back over to the main surgeon who will remove the ureteral catheter at the end of the case it is not necessary anymore. Surgeon: Demar Muniz Type of Anesthesia: General Drains: left ureteral catheter Admit VTE Documentation VTE Present on Admission: No VTE Mechan Device Prophylaxis: SCD's
[2021-12-25] MEDS: BUPIVACAINE LIPOSOME/PF 20 ML VIAL OPERA.SITE (08:04)
[2021-12-25] MEDS: Lubricating Jelly 60 GM Tube 30 GM (08:04)
[2021-12-25] MEDS: Lactated Ringers 1,000 ML 15 ML IV ×2 (08:46→12:01)
--- NOTE | 2021-12-25 12:10 | PCM.OPRPT ---
Report of Operation Date of Procedure: 12/25/21 Pre-Operative Diagnosis: Severe sigmoid stricture with perisigmoid inflammation with adjacent uterine vaginal inflammation and large bowel obstruction requiring diverting loop transverse colostomy Post-Operative Diagnosis: Severe sigmoid stricture with ongoing inflammatory changes with inflammatory changes to the rectosigmoid and to the uterine vaginal wall. Abnormal right ovary Surgery/Procedure Performed:: Takedown of loop transverse colostomy with a laparoscopy and laparoscopic with then converted to hand-assisted laparoscopic mobilization of the splenic flexure and mobilization of the sigmoid colon with subsequent final conversion to an open technique to gain access to the superior rectum and perform a low anterior stapled anastomosis. Intraoperative consultation to Dr. Martina Avalos for vaginal inspection and she is subsequently performed a right salpingo-oophorectomy Bilateral transverse abdominis plane block under laparoscopic assistance Description of Surgical Findings:: Timeout informed consent was obtained. 76-year-old female was taken the operating placed on the table underwent general tracheal ovation esthesia she was placed in a low lithotomy position cefotetan 2 g of adenosine distally performed a cystoscopy and left ureteral catheter. Low lithotomy then with a beanbag in place she was sterilely prepped and draped. The transverse loop colostomy was to remove and closed with running 0 chromic and then were saturated with Betadine solution. First incision was made at that stoma site transverse incision was created tedious sharp and blunt dissection was used to release the transfer stoma then the fascia was approximated transversely with simple sutures of 0 Vicryl Waldron catheter was inserted unfortunately there was significant amount of distention of a large amount of the small bowel. Exact etiology of this not clear. The large bowel was decompressed. I placed 5 mm ports in the right periumbilical area in the right lower quadrant initiated the dissection was able under laparoscopic guidance to do a bilateral transversus abdominis plane block with the Exparel mixed with Marcaine and diluted with saline. Then I identified marked inflammatory changes of the rectosigmoid. I freed the gastrocolic omentum off the transverse colon and freed the splenic flexure laparoscopically. Incised the white line of Toldt up to the splenic flexure. Having achieved that the inflammatory change in the extent of the disease and the retrouterine pelvis was extensive so I made a infraumbilical midline incision placed a hand port did blunt dissection did a lot of that dissection but there is still distal inflammatory change. Identify the left ureter with a catheter in place to used to instill device to transect the rectosigmoid. The left colon had been fully mobilized. At this point due to the dense adherence of the rectosigmoid a inflammatory reactive pocket and the uterus I asked Dr. Martina Avalos to accompany converted to an open placed awake retractor at this point had done sharp dissection was finally able to identify the anterior rectal wall Dr. Donn Enciso did a speculum exam through the vagina and was able to see that we were clear. She inspected the tube and ovary left tube and ovary very adherent to the right to an ovary demonstrate an abnormal ovary and she proceeded with a right salpingo-oophorectomy for her dictation Having achieved that I used a candycane device with 2 firings of the yellow load in order to transect the rectum. Then in fully mobilized the left colon and transected the mesentery and now based upon the middle colic I transected the transverse colon just proximal to the previous anastomosis. I placed a whip suture of 2-0 Prolene placed at 33 mm anvil and secured that. The anus was slightly stenotic and required gentle dilatation with the serial dilators and then the 33 mm stapler was inserted in the trocar was exited connected to the anvil the 2 were approximated with absolutely no tension device was fired staple line appeared to be nicely intact rigid sigmoidoscopy was performed there was no air leak identified. This was under waterseal. Pelvis was irrigated aspirated free hemostasis was intact simple sutures 4-0 silk was placed to help close the peritoneum small bowel was inspected noted be viable the appendix was inspected and was a very small fibrotic and no attempt to resect. Small bowel was placed within normal fashion greater omentum overlying portion of the greater omentum repaired with a couple of 4-0 silk sutures to assure no holes. Then the fascia was closed with a running 0 PDS. The periincisional fascia was anesthetized with the local anesthetic as well. The trochars had been removed and the son catheter removed from the left upper quadrant stoma site and that incision was closed with simple sutures of 0 Vicryl. Each wound was then partially approximated with subdermal 4-0 Monocryl. The major midline wound was treated with half-inch Nu Gauze krish in the stoma was treated with 1/2 inch Luis Daniel drain secured with a safety pin. Sterile dressings applied. Sponge and instrument and needle counts reported as correct. Specimens left colon and rectosigmoid and donuts as well as right tube and ovary blood loss 100 cc. Drains none She was taken to recovery room in satisfactory addition without apparent complication Joo Gandara M.D., F.A.C.S. Surgeon: Joo Gandara Type of Anesthesia: General and Local Anesthesiologist: Wilma Oliveira
[2021-12-25] MEDS: Sugammadex Sodium 200 MG/2 ML VIAL IV (12:30)
[2021-12-25] MEDS: Lactated Ringers 1,000 ML 70 ML IV (16:03)
[2021-12-25] MEDS: HYDROmorphone 0.5 MG/0.5 ML SYRINGE IV (16:57)
--- NOTE | 2021-12-25 17:16 | PCM.OPRPT ---
Problems Associated Problem List Diagnoses (1) Ovarian mass, right: Report of Operation Date of Procedure: 12/25/21 Pre-Operative Diagnosis: right ovarian mass, intraoperative consult for uterine/vaginal integrity evaluation Post-Operative Diagnosis: same, intact uterus and vagina Surgery/Procedure Performed:: right salpingooophorectomy Description of Surgical Findings:: left hydrosalpinx, left ovary nl appearing but severe dense adhesion to pelvic side wall. right ovary enlarged firm multicystic Surgeon: Martina Avalos drill sharpener operator: Joo Gandara Type of Anesthesia: General Specimen's removed: ovary tube Description of Procedure: I was called in for an intraoperative consult to evaluate the integrity of the uterus and vagina after significant dissection of the sigmoid colon off of the posterior uterine corpus. Upon evaluation integrity was confirmed and no perforations into the vagina or uterus were noted. Upon evaluating the tubes and ovaries the left tube was noted to be enlarged with a hydrosalpinx but had benign findings and the left ovary was within normal limits but had dense adhesions to the pelvic sidewall, the right ovary was noted to be significantly enlarged with a multicystic and partially solid appearance of abnormalities and therefore the decision to remove was made. The broad ligament was opened with the Bovie and Jacki clamp was used to ligate the infundibulopelvic ligament and the utero-ovarian ligament and they were suture-ligated the IP ligament was double ligated with 0 Vicryl. Excellent hemostasis was noted and tube and ovary were sent for analysis. Vaginal exam was performed and again confirmed integrity and with no perforation into the abdomen. Intraoperative consult was no longer needed per general surgery request. Please see the general surgeons note for further details both prior to and following my operative portion. Complications none Procedures Urinary/Genital [id number]: 31140 BS/O Laparotomy (in conjuction with dr donaldson case, intraop consult)
--- NOTE | 2021-12-25 17:31 | NURSING ---
DR MCCLURE CALLED TO CHECK ON STATUS OF PT. PT WAS GIVEN 0.5MG DILAUDID FOR PAIN 09/24. UOP APPROX 50MLS SINCE COMING UP FROM PACU.
--- NOTE | 2021-12-25 21:32 | NURSING ---
Pt OOB for first time post-op at 2014 this date. Assisted by this RN and Cow Washer. Pt ambulated to ponce and back to bed. Pt tolerated well. SCD's in place and call light in reach. Pt denies additional needs at this time. Education provided by this RN on utilizing a blanket for splinting. Pt demonstrated and verbalized understanding.
[2021-12-25] MEDS: Docusate Sodium 100 MG Capsule PO (22:42)
[2021-12-26] VITALS (9 sets, daily range): BP systolic 104–146; BP diastolic 50–67; PULSE 84–102; RESP 15–18; TEMP 36.7; O2SAT 96–100
[2021-12-26] MEDS: Acetaminophen 500 MG Tablet 1000 MG PO ×3 (02:35→20:24)
[2021-12-26] MEDS: oxyCODONE 5 MG Tablet PO ×4 (03:47→21:28)
[2021-12-26] MEDS: Ondansetron ODT 4 MG Tablet PO ×2 (04:30→10:20)
--- NOTE | 2021-12-26 04:34 | NURSING ---
Pt assisted OOB. unable to ambulate out of room due to nausea. Pt assisted back to bed and Zofran administered.
[2021-12-26] MEDS: Lactated Ringers 1,000 ML 70 ML IV (04:50)
[2021-12-26 05:43] LABS: Hematocrit 32.7 % (37-47); Hemoglobin 10.4 g/dL (12.0-15.0); Mean Corp Hgb Conc 31.8 g/dL (32-36); Mean Corpuscular Hgb 29.6 pg (27.0-32.0); Mean Corpuscular Volume 93.2 fL (81-99); Platelet Count 608 K/mm3 (150-450); RBC Distribution Width CV 13.8 % (11.6-14.6); RBC Distribution Width SD 46.6 fl (35.1-43.9); Red Blood Count 3.51 M/mm3 (4.2-5.4); White Blood Count 16.1 K/mm3 (4.4-11.0)
[2021-12-26 06:10] LABS: Anion Gap 7 (5-15); BUN 9 mg/dL (7-18); BUN/Creat Ratio 12.6 RATIO (10-20); Calcium,Total 8.9 mg/dL (8.5-10.1); Chloride 103 mmol/L (98-107); Creatinine, Serum 0.72 mg/dL (0.55-1.02); EST Glomerular Filtration Rate 85 mL/min (>60); Est Glom Filt Rate - Afr Amer 103 mL/min (>60); Estimated Creatinine Clearance 46.65 ml/min; Glucose 144 mg/dL (74-106); Potassium 3.8 mmol/L (3.5-5.1); Sodium Level 136 mmol/L (136-145)
--- NOTE | 2021-12-26 06:28 | PCM.PN.SRG ---
Subjective Subjective Patient was nauseated with earlier attempt to walk. Complaining of low abdominal pain and pressure. No flatus. She is working on her I-S. Objective Data Objective Data Vital Signs: Vital Signs Temp Pulse Resp BP Pulse Ox O2 Del Method O2 Flow Rate 98.1 F 84 18 143/67 H 98 Room Air 4 12/26/21 04:10 12/26/21 04:10 12/26/21 04:10 12/26/21 04:10 12/26/21 04:10 12/26/21 04:10 12/25/21 15:00 Oxygen Flow Rate (L/min) 4 Oxygen Delivery Method Room Air Weight: 132 lb Body Mass Index (BMI) 20.0 Intake & Output: Intake and Output for Last 24 Hours 12/24/21 12/25/21 12/26/21 23:59 23:59 23:59 Intake Total 4525.67 / 4525.67 665 / 665 Output Total 930 / 930 150 / 150 Balance 3595.67 / 3595.67 515 / 515 Lab / Micro Data Result Diagrams: 12/26/21 04:48 12/26/21 04:48 Labs: Laboratory Results - last 24 hr 12/25/21 06:04: POC Glucose 106 12/26/21 04:48: WBC 16.1 H, RBC 3.51 L, Hgb 10.4 L, Hct 32.7 L, MCV 93.2, MCH 29.6, MCHC 31.8 L, RDW Std Deviation 46.6 H, RDW Coeff of Annalee 13.8, Plt Count 608 H, MPV 9.0 12/26/21 04:48: Sodium 136, Potassium 3.8, Chloride 103, Carbon Dioxide 26.0, Anion Gap 7, BUN 9, Creatinine 0.72, Estim Creat Clear Calc 46.65, Est GFR (MDRD) Af Amer 103, Est GFR (MDRD) Non-Af 85, BUN/Creatinine Ratio 12.6, Glucose 144 H, Calcium 8.9 Physical Exam Resp normal respiratory effort and clear to auscultation bilaterally GI GI Narrative: Abdomen is distended, occasional bowel sounds, dressings all clean and dry Assessment & Plan Assessment/Plan (1) Colitis: (2) Large bowel obstruction: PLAN: Plan Extensive procedure. Patient encouraged to mobilize and limit narcotics when possible. Not ready for diet. Joo Gandara M.D., F.A.C.S.
[2021-12-26] MEDS: Furosemide 20 MG/2 ML VIAL IV (06:42)
[2021-12-26] MEDS: Docusate Sodium 100 MG Capsule PO ×2 (08:45→20:24)
[2021-12-26] MEDS: Magnesium Chloride 64 MG Delay Rel.Tablet 128 MG PO (10:20)
--- NOTE | 2021-12-26 10:55 | CASEMGMT ---
RN ESTELITA Face to Face with patient for initial transition planning/care coordination assessment. RN CM introduced self and role at [facility]. Patient sitting in chair, alert and oriented. Patient willing to participate in assessment and is able to answer all questions appropriately. Care providers, pharmacy, and demographics verified. Patient wishes to discharge home, will monitor for HHC pending progress with therapy. Patient states she has no further needs or concerns at this time. CM to follow for discharge planning needs that may arise. PCP: Tio Specialists: Nichol Arellano Pharmacy: [facility] retail at discharge. Insurance: [employer] Prescription Benefit: yes Living Will/HPOA: yes, son Jacky Pacheco, HPOA LNOK: son Living Arrangements: Patient lives alone in a 2 story home. Patient states she is independent and able to ambulate stairs. Transportation: self, son DME/HHC: patient states she has shower chair, cane. Patient may benefit from walker at discharge, no preferences for DME. Patient has had [facility] in the past. Disposition Plan: Patient to discharge home with family support and follow-up plans in place. Will monitor for walker and HHC at discharge. Kanika DONG, RN, CM
--- NOTE | 2021-12-26 12:41 | NURSING ---
AMBULATED TAI W/MYRON ROBERTS. WALKED THE SMALL LOOP NEAR PTS ROOM. REPORTED MILD NAUSEA BUT SAID THAT ITS MORE FROM THE SALIVA . RATING PAIN 6/10, AWARE THE OXYCODONE IS NOT DUE UNTIL ALMOST 1400 WHEN THE SCHEDULED TYLENOL IS DUE. PT SAID SHE IS GOOD WITHOUT ANYMEDS AT THIS TIME, ENCOURAGED TO CALL IF PAIN ESCALATES/
--- NOTE | 2021-12-26 12:53 | PCM.PN.OB ---
Subjective Subjective Patient doing well feels fatigue and pain is controlled. Denies chest pain, shortness of breath, calf pain/swelling, fevers, chills, lightheadedness. Objective Data Objective Data Vital Signs: Vital Signs Temp Pulse Resp BP Pulse Ox O2 Del Method O2 Flow Rate 98.1 F 84 16 119/64 99 Room Air 100 12/26/21 12:40 12/26/21 12:40 12/26/21 12:40 12/26/21 12:40 12/26/21 12:40 12/26/21 12:40 12/26/21 09:48 Oxygen Flow Rate (L/min) 100 Oxygen Delivery Method Room Air Weight: 132 lb Body Mass Index (BMI) 20.0 Intake & Output: Intake and Output for Last 24 Hours 12/24/21 12/25/21 12/26/21 23:59 23:59 23:59 Intake Total 4525.67 / 4525.67 845 / 845 Output Total 930 / 930 650 / 650 Balance 3595.67 / 3595.67 195 / 195 Lab / Micro Data Result Diagrams: 12/26/21 04:48 12/26/21 04:48 Labs: Laboratory Results - last 24 hr 12/26/21 04:48: WBC 16.1 H, RBC 3.51 L, Hgb 10.4 L, Hct 32.7 L, MCV 93.2, MCH 29.6, MCHC 31.8 L, RDW Std Deviation 46.6 H, RDW Coeff of Annalee 13.8, Plt Count 608 H, MPV 9.0 12/26/21 04:48: Sodium 136, Potassium 3.8, Chloride 103, Carbon Dioxide 26.0, Anion Gap 7, BUN 9, Creatinine 0.72, Estim Creat Clear Calc 46.65, Est GFR (MDRD) Af Amer 103, Est GFR (MDRD) Non-Af 85, BUN/Creatinine Ratio 12.6, Glucose 144 H, Calcium 8.9 ROS Constitutional Constitutional: Reports systems reviewed and no addt'l complaints, except as documented Cardiovascular Cardiovascular: Reports systems reviewed and no addt'l complaints, except as documented Respiratory/Chest Respiratory/Chest: Reports systems reviewed and no addt'l complaints, except as documented Gastrointestinal Gastrointestinal: Reports systems reviewed and no addt'l complaints, except as documented Physical Exam Const alert, oriented x3 and no apparent distress HEENT Head and Scalp: atraumatic Resp normal respiratory effort GI soft to palpation and non-tender GI Narrative: incsn: c/d/i with bandage present Assessment & Plan (1) Ovarian mass, right: COMMENT: s/p RSO 01/07 PLAN: Plan s/p intraop consult for uterine/vaginal integrity evaluation, RSO. pod 1 postop care within standards of general surgery recommendations, will sign off and contact patient with results of pathology. outpatient office available for follow up if desired for future gynecologic care.
[2021-12-27] VITALS (9 sets, daily range): BP systolic 142–172; BP diastolic 53–86; PULSE 83–100; RESP 16–18; TEMP 36.6–37.2; O2SAT 96–99
[2021-12-27] MEDS: Acetaminophen 500 MG Tablet 1000 MG PO ×4 (03:51→21:23)
[2021-12-27 06:19] LABS: Absolute Lymphocyte Count 1.28 X10^3/uL (0.83-4.51); Absolute Neutrophil Count 10.8 X10^3/uL (2.0-7.7); Basophil# 0.01 X10^3/uL; Basophil% 0.1 % (0-1); Eosinophil# 0.04 X10^3/uL; Eosinophils% 0.3 % (0-5); Hematocrit 27.8 % (37-47); Hemoglobin 8.9 g/dL (12.0-15.0); Lymphocyte # 1.28 X10^3/ul (0.83-4.51); Lymphocyte % 9.7 % (19-41); Mean Corpuscular Hgb 29.6 pg (27.0-32.0); Mean Corpuscular Volume 92.4 fL (81-99); Mean Platelet Vol. 8.8 fl (6.2-12.0); Monocyte# 0.95 X10^3/uL; Monocyte% 7.2 % (0-10); NRBC Flagged by Analyzer 0 % (0-5); Neutrophil # 10.84 X10^3/uL (2.7-7.7); Neutrophil % 82.2 % (47-70); Platelet Count 489 K/mm3 (150-450); RBC Distribution Width CV 14.2 % (11.6-14.6); RBC Distribution Width SD 47.5 fl (35.1-43.9); Red Blood Count 3.01 M/mm3 (4.2-5.4); White Blood Count 13.2 K/mm3 (4.4-11.0)
--- NOTE | 2021-12-27 06:42 | PCM.PN.SRG ---
Subjective Subjective Patient states that she was able to sit up most of yesterday. She has had a small amount of flatus this morning. When she is not moving she is resting comfortably. Getting out of bed and walking does cause some abdominal discomfort and the patient points to her midline incision. No current nausea. Objective Data Objective Data Vital Signs: Vital Signs Temp Pulse Resp BP Pulse Ox O2 Del Method O2 Flow Rate 97.8 F 100 18 142/53 H 96 Room Air 100 12/27/21 04:14 12/27/21 04:14 12/27/21 04:14 12/27/21 04:14 12/27/21 04:14 12/27/21 04:14 12/27/21 04:14 Oxygen Flow Rate (L/min) 100 Oxygen Delivery Method Room Air Weight: 131 lb 15.993 oz Body Mass Index (BMI) 20.0 Intake & Output: Intake and Output for Last 24 Hours 12/25/21 12/26/21 12/27/21 23:59 23:59 23:59 Intake Total 4525.67 / 4525.67 1786.5 / 1786.5 Output Total 930 / 930 1075 / 1075 175 / 175 Balance 3595.67 / 3595.67 711.5 / 711.5 -175 / -175 Lab / Micro Data Result Diagrams: 12/27/21 05:31 12/26/21 04:48 Labs: Laboratory Results - last 24 hr 12/27/21 05:31: WBC 13.2 H, RBC 3.01 L, Hgb 8.9 L, Hct 27.8 L, MCV 92.4, MCH 29.6, MCHC 32.0, RDW Std Deviation 47.5 H, RDW Coeff of Annalee 14.2, Plt Count 489 H, MPV 8.8, Immature Gran % (Auto) 0.500, Neut % (Auto) 82.2 H, Lymph % (Auto) 9.7 L, [place]falfa % (Auto) 7.2, Eos % (Auto) 0.3, Baso % (Auto) 0.1, Absolute Neuts (auto) 10.8 H, Absolute Lymphs (auto) 1.28, Nucleated RBC % 0 Physical Exam Narrative Slightly flushed cheeks. Resp normal respiratory effort and clear to auscultation bilaterally GI GI Narrative: Abdomen is distended, dressings are clean and dry, nonspecific bowel sounds present Extremity Extremity Narrative: Calves are supple nontender, SCUDs in place Assessment & Plan Assessment/Plan (1) Sigmoid stricture: (2) Large bowel obstruction: (3) Colitis: PLAN: Plan Patient is making steady progress. We will remove the Hernandes and initiate clear liquids. The patient will continue to ambulate. Slow progress noted. Leukocytosis improving. Joo Gandara M.D., F.A.C.S.
--- NOTE | 2021-12-27 07:41 | NURSING ---
Hernandes catheter removed. drained 200ml of clear yellow urine. pt educated to let staff know when they need to get up.
--- NOTE | 2021-12-27 08:16 | PCM.PN.BLA ---
Progress Note Patient is sitting up in bed comfortably. She denies complaints of sob, fever, chills, or vomiting but still somewhat nauseated. She is trying to hold down Jello. Physical Exam Const alert, oriented x3, no apparent distress and healthy appearing General Appearance: cooperative; Negative for anxious HEENT normocephalic Face and Sinus: normal facial exam Eyes EOMs intact bilaterally and no scleral icterus General Eye: normal appearance of both eyes Resp normal respiratory effort Effort and Inspection: able to speak in complete sentences Cardio regular rate GI soft to palpation and non-tender GI Narrative: incision is clean and intact and dressing is dry. Extremity full ROM General Extremity: Negative for calf tenderness or edema Psych mental status grossly normal Assessment & Plan Assessment/Plan (1) Ovarian mass, right: (2) Colitis: PLAN: Plan Dr. Avalos is off today and has signed off. I explained to Pia that although her colon path is back, ovarian path is not yet back yet. we will get in touch with her when it returns and follow outpatient. Visit Charges Inpatient E&M: 24275 Subs Hosp L2
[2021-12-27] MEDS: Docusate Sodium 100 MG Capsule PO ×2 (09:09→21:23)
[2021-12-27] MEDS: Metoprolol Tartrate 25 MG Tablet 12.5 MG PO ×2 (16:19→21:26)
[2021-12-27] MEDS: oxyCODONE 5 MG Tablet PO (21:23)
[2021-12-27] MEDS: Losartan Potassium 100 MG Tablet PO (21:26)
[2021-12-27] MEDS: hydroCHLOROthiazide 12.5mg 12.5 MG PO (21:27)
[2021-12-28] MEDS: Acetaminophen 500 MG Tablet 1000 MG PO ×2 (03:20→09:03)
[2021-12-28 03:25] VITALS: BP 150/70; PULSE 88; RESP 16; TEMP 36.6; O2SAT 98
[2021-12-28 04:46] VITALS: BP 150/70; PULSE 88; RESP 16; TEMP 36.6; O2SAT 98
[2021-12-28 05:46] LABS: Absolute Lymphocyte Count 1.13 X10^3/uL (0.83-4.51); Absolute Neutrophil Count 9.2 X10^3/uL (2.0-7.7); Basophil# 0.06 X10^3/uL; Basophil% 0.5 % (0-1); Eosinophil# 0.45 X10^3/uL; Eosinophils% 3.9 % (0-5); Hemoglobin 9.1 g/dL (12.0-15.0); Lymphocyte # 1.13 X10^3/ul (0.83-4.51); Lymphocyte % 9.8 % (19-41); Mean Corp Hgb Conc 32.5 g/dL (32-36); Mean Corpuscular Hgb 29.6 pg (27.0-32.0); Mean Corpuscular Volume 91.2 fL (81-99); Mean Platelet Vol. 8.6 fl (6.2-12.0); Monocyte# 0.63 X10^3/uL; Monocyte% 5.5 % (0-10); NRBC Flagged by Analyzer 0 % (0-5); Neutrophil # 9.16 X10^3/uL (2.7-7.7); Neutrophil % 79.8 % (47-70); Platelet Count 424 K/mm3 (150-450); RBC Distribution Width CV 13.9 % (11.6-14.6); RBC Distribution Width SD 46.4 fl (35.1-43.9); Red Blood Count 3.07 M/mm3 (4.2-5.4); White Blood Count 11.5 K/mm3 (4.4-11.0)
--- NOTE | 2021-12-28 06:26 | PN.SURG_ITS ---
Subjective Subjective Patient has no particular complaints. She is resting comfortably. She does find some discomfort getting out of bed a tugging sensation of the lower incision. Nursing reports however demonstrate that she is actually progressing very well. She has had some stool and she has had some flatus. She is tolerating clear liquids without difficulty Objective Data Objective Data Vital Signs: Vital Signs Temp Pulse Resp BP Pulse Ox O2 Del Method O2 Flow Rate 97.9 F 88 16 150/70 H 98 Room Air 100 12/28/21 04:46 12/28/21 04:46 12/28/21 04:46 12/28/21 04:46 12/28/21 04:46 12/28/21 04:46 12/28/21 04:46 Oxygen Flow Rate (L/min) 100 Oxygen Delivery Method Room Air Weight: 131 lb 15.993 oz Body Mass Index (BMI) 20.0 Intake & Output: Intake and Output for Last 24 Hours 12/26/21 12/27/21 12/28/21 23:59 23:59 23:59 Intake Total 1786.5 / 1786.5 500 / 500 Output Total 1075 / 1075 575 / 575 Balance 711.5 / 711.5 -75 / -75 Lab / Micro Data Result Diagrams: 12/28/21 05:34 12/26/21 04:48 Labs: Laboratory Results - last 24 hr 12/28/21 05:34: WBC 11.5 H, RBC 3.07 L, Hgb 9.1 L, Hct 28.0 L, MCV 91.2, MCH 29.6, MCHC 32.5, RDW Std Deviation 46.4 H, RDW Coeff of Annalee 13.9, Plt Count 424, MPV 8.6, Immature Gran % (Auto) 0.500, Neut % (Auto) 79.8 H, Lymph % (Auto) 9.8 L, [place] % (Auto) 5.5, Eos % (Auto) 3.9, Baso % (Auto) 0.5, Absolute Neuts (auto) 9.2 H, Absolute Lymphs (auto) 1.13, Nucleated RBC % 0 Physical Exam Const oriented x3 and no apparent distress Resp normal respiratory effort and clear to auscultation bilaterally GI GI Narrative: Abdomen is softer and less distended, minimal amount of serous drainage at the stoma Webster site and at the wound wick sites. No signs of infection. Assessment & Plan Assessment/Plan (1) Sigmoid stricture: (2) Large bowel obstruction: (3) Colitis: (4) Ovarian mass, right: PLAN: Plan I personally changed her wound dressings today. I advanced the Luis Daniel drain and I advanced each of the small krish and trim them. I applied dry cover dressings. I anticipate a nursing progress report later today. I anticipate hopeful discharge later today. We will initiate a transitional diet at this time. Joo Gandara M.D., F.A.C.S.
[2021-12-28 07:56] VITALS: O2SAT 97
[2021-12-28 08:54] VITALS: BP 147/69; PULSE 91; RESP 18; TEMP 36.7; O2SAT 100
[2021-12-28] MEDS: Docusate Sodium 100 MG Capsule PO (09:03)
[2021-12-28 09:04] VITALS: PULSE 95
[2021-12-28] MEDS: Metoprolol Tartrate 25 MG Tablet 12.5 MG PO (09:04)
--- NOTE | 2021-12-28 09:52 | CASEMGMT ---
Social Work SW in to meet with pt and validate advanced directives. Pt confirmed has HCPOA and LW. Pt named son, Jacky Payne, as agent. Pt made aware documents are not on file at [facility]. SW informed pt if would like documents on file to bring in copy and drop off at Medical Records department. Pt voiced understanding. YORDAN Haas
[2021-12-28 13:37] VITALS: BP 155/65; PULSE 87; RESP 18; TEMP 36.7; O2SAT 98
--- NOTE | 2022-01-02 16:03 | PCM.DC.SUM ---
Providers Date of Admission: 12/25/21 Date of Discharge: 12/28/21 Primary Care Physician: Dr. Oskar Kinsey MD Consultations 12/25/21 14:01 Consult: LEARNING AND DEVELOPMENT ADMINISTRATOR Routine Consulting Provider: Martina Avalos Reason for Consult: Dr. Martina Jacinto EMERGENT Consult: Yes MD Notified: Yes Date Notified: 12/25/21 Time Notified: 11:00 Method of Notification: Verbal Reason For Visit: lt lap poss open sigmoid hemicolectomy Diagnosis Discharge Diagnosis (1) Sigmoid stricture: Status: Acute Code(s): K56.699 - Other intestinal obstruction unspecified as to partial versus complete obstruction (2) Large bowel obstruction: Status: Acute Code(s): K56.609 - Unspecified intestinal obstruction, unspecified as to partial versus complete obstruction (3) Colitis: Status: Acute Code(s): K52.9 - Noninfective gastroenteritis and colitis, unspecified (4) Ovarian mass, right: Status: Acute Code(s): N83.8 - Other noninflammatory disorders of ovary, fallopian tube and broad ligament Medications at Discharge Home Medications cholecalciferol (vitamin D3) 25 mcg (1,000 unit) tablet (Vitamin D3) 25 mcg PO DAILY SUPPLEMENT 11/02/21 metoprolol tartrate 25 mg tablet 12.5 mg PO BID BP 11/02/21 multivitamin 1 tab PO DAILY SUPPLEMENT 11/02/21 valsartan 320 mg-hydrochlorothiazide 12.5 mg tablet 1 tab PO QHS Check with primary doctor 11/02/21 metronidazole 500 mg tablet 500 mg PO .COMPLEX PREP 12/22/21 acetaminophen 325 mg tablet (Tylenol) 650 mg PO Q6H PRN 12/29/21 Hospital Course Operations colectomy and - Summary of Care Provided Minutes Spent on Discharge: 30 Hospital Course: Patient is a 76 y/o F who presented for an elective colostomy takedown and colectomy. Dr. Gandara performed a Takedown of loop transverse colostomy with a laparoscopy and laparoscopic with then converted to hand-assisted laparoscopic mobilization of the splenic flexure and mobilization of the sigmoid colon with subsequent final conversion to an open technique to gain access to the superior rectum and perform a low anterior stapled anastomosis. Intraoperative consultation to Dr. Martina Avalos for vaginal inspection and she is subsequently performed a right salpingo-oophorectomy. Bilateral transverse abdominis plane block under laparoscopic assistance on 12/25/21. Patient tolerated the procedure well. Patient had an uneventful hospitalization. Upon discharge, patient tolerated the transitional diet. She denies nausea, vomiting, fever. She notes some abdominal discomfort. She was passing flatus and having small bowel movements. Physical Exam Const alert, oriented x3 and no apparent distress HEENT normocephalic and head/scalp atraumatic Eyes PERRL GI GI Narrative: Midline incision intact with multiple small krish throughout. Wilbraham drain placed at previous stoma site Two additional incisions with op-sites in place. Auscultation: hypoactive bowel sounds Palpation: soft and tender other (generalized tenderness) Weight / BMI Weight Weight: 131 lb 15.993 oz Body Mass Index (BMI) 20.0 ABG / Lab / Microbiology Data Result Diagrams: 12/28/21 05:34 12/26/21 04:48 D/C Instructions Discharge Diet: Light diet - advance as tolerated (if you have questions about your diet instructions, please talk to you doctor.) May shower in (days): 1 Additional Activity Instructions: Please keep your dressings clean and dry. No showers or tub baths until released to do so after your office appointments. I anticipate an office appointment tomorrow Saturday for wound inspections and dressing change to assist you. If you have excessive drainage on your dressings you may proceed with changing the dry gauze cover dressing as you watched me do in the hospital with gauze and paper tape Call your doctor if your incision/area has: Continuous Slow Oozing, Sudden Increased Bleeding, Increased Pain/ Swelling, Increased Redness and Foul Smelling Discharge Call your doctor if you observe: Fever of 101 or Higher Suture Line Care: Avoid Pulling/Pushing and Avoid Pinching/Bending Additional Dressing/Incision Instructions: Change or remove dressing in 4 days. Leave steri-strips in place for 1 week. Please Follow Up With: Joo Gandara MD When: Call [phone] to make an appointment approximately noon tomorrow December 29, 2021. Please make an additional appointment with Betsy on January 01, 2022. Meaningful Use Info Meaningful Use Diagnoses (Choose all that apply): None applicable Discharge Plan Admission Admit Date/Time: 12/25/21 05:12 Primary Reason for Your Visit: Colitis and sigmoid obstruction and presence of colostomy Attending Provider: Joo Gandara Primary Care Provider: Oskar Kinsey Chi Consulting Providers: Martina Avalos Discharge Orders/Prescriptions Prescriptions: Continued multivitamin Tablet 1 tab PO DAILY metoprolol tartrate 25 mg tablet 12.5 mg PO BID Label Comments: TAKE 1/2 (ONE-HALF) TABLET BY MOUTH TWICE DAILY FOR 30 DAYS (STOP LOSARTAN) valsartan-hydrochlorothiazide 320-12.5 mg tablet 1 tab PO QHS cholecalciferol (vitamin D3) [Vitamin D3] 25 mcg (1,000 unit) Tablet 25 mcg PO DAILY metronidazole 500 mg tablet 500 mg PO .COMPLEX Rx Instructions: 500 mg PO Take 2 (two) tablets at 1300, 1500, 2300 No Action acetaminophen [Tylenol] 325 mg tablet 650 mg PO Q6H PRN Referrals / Follow Up: Oskar Kinsey Chi, MD [Primary Care Provider] - Disposition Disposition (needs filled in before D/C Order can be placed): Home, Self Care Charges/Coding Visit Charges Inpatient E&M: 92092 Disch Hosp (post-op)
== END 2021-12-28 16:15 | disposition home or self-care (01) | DRG 331 ==
LOC: ACINP 06:12 → MS3 12:40
PROVIDERS: Anesthesiology; Admitting Provider Surgery; PCP Family Medicine Geriatric Medicine; Referring Provider Surgery; Visit Provider Surgery
PROC: 0DBN4ZZ Excision of Sigmoid Colon, Percutaneous Endoscopic Approach (ICD-10-PCS; CPT 44204; principal; 2021-12-25 07:05)
DX: K57.20 Diverticulitis of large intestine with perforation and abscess without bleeding (principal); Z43.3 Encounter for attention to colostomy; I10 Essential (primary) hypertension; N83.8 Other noninflammatory disorders of ovary, fallopian tube and broad ligament; Z78.0 Asymptomatic menopausal state
CPT/HCPCS: 36415; 80048; 82962; 83735; 85025; 85027; 86850; 86900; 86901; 88302; 88304; 88307; 99251; J7040; J7120; C1760; C1769; G0463; J1940; J2405; J3475

== ENCOUNTER → 2022-01-31 | Outpatient (CLI) | payer MEDICARE, SELFPAY ==
[2022-01-31 12:19] LABS: Absolute Lymphocyte Count 1.45 X10^3/uL (0.83-4.51); Absolute Neutrophil Count 3.7 X10^3/uL (2.0-7.7); Basophil# 0.06 X10^3/uL; Eosinophil# 0.17 X10^3/uL; Hematocrit 35.1 % (37-47); Hemoglobin 10.8 g/dL (12.0-15.0); Lymphocyte # 1.45 X10^3/ul (0.83-4.51); Lymphocyte % 25.2 % (19-41); Mean Corp Hgb Conc 30.8 g/dL (32-36); Mean Corpuscular Hgb 28.6 pg (27.0-32.0); Mean Corpuscular Volume 93.1 fL (81-99); NRBC Flagged by Analyzer 0 % (0-5); Neutrophil # 3.65 X10^3/uL (2.7-7.7); Neutrophil % 63.5 % (47-70); Platelet Count 314 K/mm3 (150-450); RBC Distribution Width CV 14.7 % (11.6-14.6); RBC Distribution Width SD 50.5 fl (35.1-43.9); Red Blood Count 3.77 M/mm3 (4.2-5.4); White Blood Count 5.8 K/mm3 (4.4-11.0)
[2022-01-31 12:38] LABS: Vitamin D,25 Hydroxy 50.4 ng/mL
[2022-01-31 12:59] LABS: ALB/GLOB Ratio 0.9 RATIO (0.9-2.4); AST(SGOT) 17 U/L (15-37); Alanine Aminotransfer ALT/SGPT 24 U/L (13-56); Albumin, Serum 3.5 g/dL (3.2-5.0); Alkaline Phosphatase 70 U/L (45-117); Anion Gap 7 (5-15); BUN 13 mg/dL (7-18); Calcium,Total 9.5 mg/dL (8.5-10.1); Chloride 105 mmol/L (98-107); Cholesterol 187 mg/dL (200); Creatinine, Serum 0.68 mg/dL (0.55-1.02); EST Glomerular Filtration Rate 89 mL/min (>60); Est Glom Filt Rate - Afr Amer 108 mL/min (>60); Glucose 100 mg/dL (74-106); High Density Lipoprotein 62 mg/dL; Potassium 3.7 mmol/L (3.5-5.1); Protein, Total 7.5 g/dL (6.4-8.2); Sodium Level 141 mmol/L (136-145); Thyroid Stim Hormone (TSH) 1.52 uIU/mL (0.358-3.74); Triglycerides 92 mg/dL; Very Low Density Lipoprotein 18 mg/dL (5-40)
== END | disposition home or self-care (01) ==
LOC: POLAB3 09:12
PROVIDERS: PCP Family Medicine Geriatric Medicine; Visit Provider Family Medicine Geriatric Medicine
DX: E78.5 Hyperlipidemia, unspecified (principal); E55.9 Vitamin D deficiency, unspecified; I10 Essential (primary) hypertension
CPT/HCPCS: 36415; 80053; 80061; 82306; 84443; 85025

== ENCOUNTER → 2022-08-01 | Outpatient (CLI) | payer MEDICARE, SELFPAY ==
[2022-08-01 10:41] LABS: Absolute Lymphocyte Count 1.67 X10^3/uL (0.83-4.51); Absolute Neutrophil Count 4.2 X10^3/uL (2.0-7.7); Basophil# 0.06 X10^3/uL; Basophil% 0.9 % (0-1); Eosinophil# 0.15 X10^3/uL; Eosinophils% 2.3 % (0-5); Hemoglobin 13.3 g/dL (12.0-15.0); Lymphocyte # 1.67 X10^3/ul (0.83-4.51); Lymphocyte % 25.6 % (19-41); Mean Corp Hgb Conc 34.1 g/dL (32-36); Mean Corpuscular Hgb 31.7 pg (27.0-32.0); Mean Corpuscular Volume 92.9 fL (81-99); Mean Platelet Vol. 9.6 fl (6.2-12.0); Monocyte# 0.43 X10^3/uL; Monocyte% 6.6 % (0-10); NRBC Flagged by Analyzer 0 % (0-5); Neutrophil # 4.19 X10^3/uL (2.7-7.7); Neutrophil % 64.3 % (47-70); Platelet Count 243 K/mm3 (150-450); RBC Distribution Width CV 11.7 % (11.6-14.6); RBC Distribution Width SD 40.1 fl (35.1-43.9); White Blood Count 6.5 K/mm3 (4.4-11.0)
[2022-08-01 11:28] LABS: ALB/GLOB Ratio 1.1 RATIO (0.9-2.4); AST(SGOT) 18 U/L (15-37); Alanine Aminotransfer ALT/SGPT 27 U/L (13-56); Albumin, Serum 3.9 g/dL (3.2-5.0); Alkaline Phosphatase 54 U/L (45-117); Anion Gap 7 (5-15); BUN 16 mg/dL (7-18); BUN/Creat Ratio 19.2 RATIO (10-20); Calcium,Total 9.5 mg/dL (8.5-10.1); Chloride 103 mmol/L (98-107); Cholesterol 202 mg/dL (200); Creatinine, Serum 0.84 mg/dL (0.55-1.02); EST Glomerular Filtration Rate 71 mL/min (>60); Est Glom Filt Rate - Afr Amer 86 mL/min (>60); Globulin 3.4 g/dL (2.2-4.2); Glucose 105 mg/dL (74-106); High Density Lipoprotein 71 mg/dL; Potassium 3.7 mmol/L (3.5-5.1); Protein, Total 7.3 g/dL (6.4-8.2); Sodium Level 138 mmol/L (136-145); Triglycerides 115 mg/dL; Very Low Density Lipoprotein 23 mg/dL (5-40)
== END | disposition home or self-care (01) ==
LOC: POLAB3 10:17
PROVIDERS: PCP Family Medicine Geriatric Medicine; Visit Provider Family Medicine Geriatric Medicine
DX: I10 Essential (primary) hypertension (principal); E55.9 Vitamin D deficiency, unspecified
CPT/HCPCS: 36415; 80053; 80061; 82306; 84443; 85025

== ENCOUNTER → 2022-08-03 | Outpatient (CLI) | payer MEDICARE, SELFPAY ==
--- NOTE | 2022-08-03 14:50 | BI_ITS ---
MAMMOGRAPHY - BILATERAL SCREENING REASON FOR EXAM: Female, 76 years old. Routine annual screening examination. PERTINENT HISTORY: Non-contributory. TECHNIQUE: Digital bilateral breast clayton (3D mammographic acquisition) in the CC and MLO projections. 2-D mediolateral oblique (MLO) and craniocaudad (CC) views of both breasts were obtained. CAD: Full Field Digital Mammography with Computer Added Detection was performed. COMPARISON: Mammogram from 08/10/2020. FINDINGS: Breast Composition: The breasts are heterogeneously dense, which may obscure small masses. There are no dominant masses or suspicious calcifications. No other significant abnormalities are identified. There has been no significant change since the prior study. BI/SCRN MAMM (CAD)W/CLAYTON BILAT IMPRESSION: Stable bilateral screening mammogram. Yearly follow-up mammogram recommended. (A) ASSESSMENT CATEGORY: BIRADS Category 1: Negative. A letter regarding these results will be sent to the patient by the facility within 30 days. Approximately 10% of breast cancers are not detected by mammography. A normal mammogram should not delay biopsy of a clinically suspicious abnormality. Electronically Signed: Wade Duggan MD at 12:54 EDT ,
== END | disposition home or self-care (01) ==
LOC: OPBI 14:49
PROVIDERS: PCP Family Medicine Geriatric Medicine; Referring Provider Family Medicine Geriatric Medicine; Visit Provider Family Medicine Geriatric Medicine
DX: Z12.31 Encounter for screening mammogram for malignant neoplasm of breast (principal)
CPT/HCPCS: 77063; 77067

== ENCOUNTER → 2023-01-28 | Outpatient (CLI) | payer MEDICARE, SELFPAY ==
[2023-01-28 10:18] LABS: Absolute Lymphocyte Count 1.68 X10^3/uL (0.83-4.51); Absolute Neutrophil Count 4.5 X10^3/uL (2.0-7.7); Basophil# 0.07 X10^3/uL; Eosinophil# 0.19 X10^3/uL; Eosinophils% 2.8 % (0-5); Hematocrit 38.6 % (37-47); Hemoglobin 12.5 g/dL (12.0-15.0); Lymphocyte # 1.68 X10^3/ul (0.83-4.51); Lymphocyte % 24.6 % (19-41); Mean Corp Hgb Conc 32.4 g/dL (32-36); Mean Corpuscular Hgb 30.5 pg (27.0-32.0); Mean Corpuscular Volume 94.1 fL (81-99); Mean Platelet Vol. 9.8 fl (6.2-12.0); Monocyte# 0.43 X10^3/uL; Monocyte% 6.3 % (0-10); NRBC Flagged by Analyzer 0 % (0-5); Neutrophil # 4.45 X10^3/uL (2.7-7.7); Platelet Count 284 K/mm3 (150-450); RBC Distribution Width CV 11.8 % (11.6-14.6); RBC Distribution Width SD 40.5 fl (35.1-43.9); White Blood Count 6.8 K/mm3 (4.4-11.0)
[2023-01-28 10:27] LABS: Vitamin D,25 Hydroxy 54.2 ng/mL
[2023-01-28 10:36] LABS: ALB/GLOB Ratio 1.1 RATIO (0.9-2.4); AST(SGOT) 22 U/L (15-37); Alanine Aminotransfer ALT/SGPT 21 U/L (13-56); Albumin, Serum 3.9 g/dL (3.2-5.0); Alkaline Phosphatase 55 U/L (45-117); Anion Gap 5 (5-15); BUN 13 mg/dL (7-18); BUN/Creat Ratio 16.4 RATIO (10-20); Calcium,Total 9.3 mg/dL (8.5-10.1); Chloride 102 mmol/L (98-107); Cholesterol 190 mg/dL (200); Creatinine, Serum 0.79 mg/dL (0.55-1.02); EST Glomerular Filtration Rate 75 mL/min (>60); Est Glom Filt Rate - Afr Amer 91 mL/min (>60); Globulin 3.5 g/dL (2.2-4.2); Glucose 98 mg/dL (74-106); High Density Lipoprotein 71 mg/dL; Potassium 3.4 mmol/L (3.5-5.1); Protein, Total 7.4 g/dL (6.4-8.2); Sodium Level 138 mmol/L (136-145); Thyroid Stim Hormone (TSH) 1.07 uIU/mL (0.358-3.74); Triglycerides 98 mg/dL; Very Low Density Lipoprotein 20 mg/dL (5-40)
== END | disposition home or self-care (01) ==
LOC: POLAB3 09:06
PROVIDERS: PCP Family Medicine Geriatric Medicine; Visit Provider Family Medicine Geriatric Medicine
DX: I10 Essential (primary) hypertension (principal); E55.9 Vitamin D deficiency, unspecified; E78.5 Hyperlipidemia, unspecified
CPT/HCPCS: 36415; 80053; 80061; 82306; 84443; 85025

== ENCOUNTER 2023-02-01 09:08 | Day surgery (SDC) | payer MEDICARE, SELFPAY ==
[2023-02-01] VITALS (7 sets, daily range): BP systolic 107–141; BP diastolic 58–67; PULSE 67–72; RESP 16–18; TEMP 36.6–36.7; O2SAT 100; BMI 21.4
[2023-02-01] MEDS: Lactated Ringers 1,000 ML 15 ML IV (09:48)
--- NOTE | 2023-02-01 09:50 | PCM.HP.BLA ---
History and Physical Date of Admission: 02/01/23 Chief Complaint: 1 year recall scope Is patient in pain?: No Allergies No Known Allergies Allergy (Verified 02/07/22 13:04) Medications metoprolol tartrate 25 mg tablet 12.5 mg PO BID BP 11/02/21 [History Confirmed 12/18/22] multivitamin 1 tab PO DAILY SUPPLEMENT 11/02/21 [History Confirmed 12/18/22] valsartan 320 mg-hydrochlorothiazide 12.5 mg tablet 1 tab PO QHS Check with primary doctor 11/02/21 [History Confirmed 12/18/22] acetaminophen 325 mg tablet (Tylenol) 650 mg PO Q6H PRN 12/29/21 [History Confirmed 12/18/22] cholecalciferol (vitamin D3) 50 mcg (2,000 unit) capsule 50 mcg PO DAILY 12/18/22 [History Confirmed 12/18/22] PFSH Medical History Colitis History of edema Hx of vaginal delivery Hypertension Non-smoker Post-menopausal Wears dentures Wears glasses Surgical History History of colostomy reversal History of cranial surgery S/P colonoscopy S/P colostomy Social History Smoking Status: Never smoker substance use type: does not use HPI HPI HPI: 77-year-old female. She has been most recently seen in the surgery office on February 07, 2022. She had had a sigmoid colectomy and a colostomy takedown and a right oophorectomy. She had a previous diagnosis of a sigmoid stricture with the sigmoid colectomy and transverse colostomy takedown done on December 25, 2021. Repeat colonoscopy November 2022 was recommended to reevaluate the anastomosis. It is of note that she was hospitalized December 26 through December 28, 2021 and had a laparoscopic with converted to hand-assisted converted to open left hemicolectomy with takedown of the loop transverse colostomy and a low anterior anastomosis with a diagnosis of severe sigmoid stricturing secondary to diverticulitis. After she eats she does have some rambling and sometimes urgent stools. No bright red blood per rectum or melena. She has had a recent in the family. Blood pressures been elevated a bit. She is she is on 2 different antihypertensives. She otherwise however is been feeling well ROS General General: No weight change, appetite, fatigue, colon cancer, breast cancer or weakness HEENT HEENT: No difficulty swallowing, eye injury, eye surgery, swollen glands or hoarseness Endo Endocrine: No thyroid disease, diabetes mellitus, thyroid cancer, Hair loss, heat intolerance or cold intolerance Skin Skin: No rash or changing moles Musc Musculoskeletal: No back problems, arthritis, rheumatoid arthritis, gout or joint pain Cardio Cardiovascular: Yes high blood pressure; No murmur, pacemaker, heart disease, atrial fibrillation, heart attack, heart stent, palpitations, shortness of breat with exertion or chest pain Psych Psychiatric: No depression, anxiety or hearing voices Resp Respiratory: No shortness of breath, No sleep apnea, No cough, No COPD, No asthma, No emphysema and No wheezing Gastro Gastrointestinal: No abdominal pain, No nausea or vomiting, No diarrhea, No constipation, No blood in stool, No acid reflux, No hemorrhoids, No ulcers, No gallbladder problem and No black,tarry stools Te Hematologic: No blood thinners, No blood disorders, No bleeding, No anemia and No blood clots Neuro Neurologic: Yes system reviewed and no additional complaints, except as documented and No weakness Exam Const General: cooperative, healthy appearing, comfortable and no acute distress [facility] Head: normal to inspection Eyes General: appearance normal, both eyes and all related structures Neck Neck: normal visual inspection Chest Chest palpation & inspection: normal inspection of the chest Resp Effort & Inspection: normal respiratory effort Auscultation: clear to auscultation bilaterally Cardio Rate: regular rate Rhythm: regular rhythm GI Palpation: soft and no hepatosplenomegaly Musc Cervical Spine: normal cervical lordosis Skin General: no rashes or lesions noted Neuro General: patient alert, patient awake and patient oriented x3 Extrem General: normal to inspection Psych Appearance: grossly normal Assessment and Plan Assessment and Plan (1) History of colostomy reversal: Status: Acute Comment: 12/25/21 Plan: Patient had a previous complicated history of surgical resection for diverticular stricture. I propose for her colonoscopy with possible biopsy or polypectomy as indicated based upon her previous surgical resection. She has had an opportunity to ask and have questions answered. We will schedule procedure at her discretion. I appreciate the ongoing opportunity of assisting with her surgical care Copy: Dr. Oskar Gandara M.D., F.A.C.S. I have examined the patient and the H&P has been reviewed. There are no clinical changes since date of exam. Joo Gandara M.D., F.A.C.S.
--- NOTE | 2023-02-01 10:35 | OP.COLON_ITS ---
Patient Name: Pia Pacheco Procedure Date: 02/01/2023 10:15 AM Date of : 1945 Age: 77 Procedure: Colonoscopy Indications: Screening for colorectal malignant neoplasm Providers: Joo Gandara MD Referring MD: Joo Gandara MD Medicines: See the Anesthesia note for documentation of the administered medications Patient Profile: Last Colonoscopy: date unknown. Complications: No immediate complications. Procedure: Pre-Anesthesia Assessment: - Prior to the procedure, a History and Physical was performed, and patient medications and allergies were reviewed. The patient's tolerance of previous anesthesia was also reviewed. The risks and benefits of the procedure and the sedation options and risks were discussed with the patient. All questions were answered, and informed consent was obtained. Prior Anticoagulants: The patient has taken no anticoagulant or antiplatelet agents. ASA Grade Assessment: II - A patient with mild systemic disease. After reviewing the risks and benefits, the patient was deemed in satisfactory condition to undergo the procedure. After I obtained informed consent, the scope was passed under direct vision. Throughout the procedure, the patient's blood pressure, pulse, and oxygen saturations were monitored continuously. The pediatric colonoscope was introduced through the anus and advanced to the ileocecal valve. The colonoscopy was performed without difficulty. The patient tolerated the procedure well. The quality of the bowel preparation was good. The ileocecal valve and the appendiceal orifice were photographed. Scope In: 10:21:29 AM Scope Withdrawal Time 0 hours 6 minutes 12 seconds Scope Out: 10:29:49 AM Total Procedure Duration Time 0 hours 8 minutes 20 seconds Findings: Hemorrhoids were found on perianal exam. There was evidence of a prior end-to-end colo-colonic anastomosis in the recto-sigmoid colon. This was patent and was characterized by healthy appearing mucosa. The exam was otherwise normal throughout the examined colon. Impression: - Hemorrhoids found on perianal exam. - Patent end-to-end colo-colonic anastomosis, characterized by healthy appearing mucosa. The colon itself is foreshortened - No specimens collected. Recommendation: - Discharge patient to home. - Resume previous diet. - Continue present medications. - Repeat colonoscopy is not recommended due to current age (66 years or older) for screening purposes. Procedure Code(s): --- Professional --- 26482, Colonoscopy, flexible; diagnostic, including collection of specimen(s) by brushing or washing, when performed (separate procedure) Diagnosis Code(s): --- Professional --- Z12.11, Encounter for screening for malignant neoplasm of colon K64.9, Unspecified hemorrhoids Z98.0, Intestinal bypass and anastomosis status CPT copyright 2021 [employer]. All rights reserved. The codes documented in this report are preliminary and upon safety grooving machine operator review may be revised to meet current compliance requirements. Joo Gandara MD 02/01/2023 10:35:10 AM This report has been signed electronically. Number of Addenda: 0 Note Initiated On: 02/01/2023 10:15 AM
--- NOTE | 2023-02-01 10:35 | OP.CCLET_ITS ---
02/01/2023 Oskar Kinsey MD [address] [place] [address] Re : Colonoscopy procedure for Pia Pacheco Dear Dr. Kinsey This procedure was performed on Wednesday, February 01, 2023. My impressions and recommendations are as follows: Impressions : - Hemorrhoids found on perianal exam. - Patent end-to-end colo-colonic anastomosis, characterized by healthy appearing mucosa. The colon itself is foreshortened - No specimens collected. Recommendations : - Discharge patient to home. - Resume previous diet. - Continue present medications. - Repeat colonoscopy is not recommended due to current age (66 years or older) for screening purposes. My findings are described in the full procedure note, which is enclosed. If I can be of further assistance, please feel free to contact me at Doctor phone number(s): Work: . Sincerely, Joo Gandara MD 02/01/2023 10:35:10 AM This report has been signed electronically.
== END 2023-02-01 11:18 | disposition home or self-care (01) ==
LOC: EN 09:09 → AC 09:12
PROVIDERS: PCP Family Medicine Geriatric Medicine; Referring Provider Surgery; Visit Provider Surgery
PROC: 0DJD8ZZ Inspection of Lower Intestinal Tract, Via Natural or Artificial Opening Endoscopic (ICD-10-PCS; CPT 45378; principal; 2023-02-01 10:25)
DX: Z12.11 Encounter for screening for malignant neoplasm of colon (principal); K64.9 Unspecified hemorrhoids; I10 Essential (primary) hypertension; Z79.899 Other long term (current) drug therapy; Z98.0 Intestinal bypass and anastomosis status
CPT/HCPCS: G0121; J7120; J2405

== ENCOUNTER → 2023-08-07 | Outpatient (CLI) | payer MEDICARE, SELFPAY ==
[2023-08-07 10:13] LABS: Absolute Neutrophil Count 3.7 X10^3/uL (2.0-7.7); Basophil# 0.06 X10^3/uL; Basophil% 1.1 % (0-1); Eosinophil# 0.05 X10^3/uL; Eosinophils% 0.9 % (0-5); Hematocrit 38.5 % (37-47); Hemoglobin 12.8 g/dL (12.0-15.0); Mean Corp Hgb Conc 33.2 g/dL (32-36); Mean Corpuscular Hgb 30.5 pg (27.0-32.0); Mean Corpuscular Volume 91.7 fL (81-99); Mean Platelet Vol. 9.4 fl (6.2-12.0); Monocyte# 0.36 X10^3/uL; Monocyte% 6.4 % (0-10); NRBC Flagged by Analyzer 0 % (0-5); Neutrophil # 3.72 X10^3/uL (2.7-7.7); Neutrophil % 66.2 % (47-70); Platelet Count 277 K/mm3 (150-450); RBC Distribution Width CV 12.1 % (11.6-14.6); RBC Distribution Width SD 40.7 fl (35.1-43.9); White Blood Count 5.6 K/mm3 (4.4-11.0)
[2023-08-07 11:31] LABS: ALB/GLOB Ratio 1.1 RATIO (0.9-2.4); AST(SGOT) 22 U/L (15-37); Alanine Aminotransfer ALT/SGPT 24 U/L (13-56); Alkaline Phosphatase 62 U/L (45-117); Anion Gap 10 (5-15); BUN 13 mg/dL (7-18); BUN/Creat Ratio 16.9 RATIO (10-20); Chloride 100 mmol/L (98-107); Cholesterol 205 mg/dL (200); Creatinine, Serum 0.77 mg/dL (0.55-1.02); EST Glomerular Filtration Rate 78 mL/min (>60); Est Glom Filt Rate - Afr Amer 94 mL/min (>60); Globulin 3.8 g/dL (2.2-4.2); Glucose 98 mg/dL (74-106); High Density Lipoprotein 74 mg/dL; Potassium 3.5 mmol/L (3.5-5.1); Protein, Total 7.8 g/dL (6.4-8.2); Sodium Level 135 mmol/L (136-145); Thyroid Stim Hormone (TSH) 1.04 uIU/mL (0.358-3.74); Triglycerides 45 mg/dL; Very Low Density Lipoprotein 9 mg/dL (5-40)
[2023-08-07 11:47] LABS: Vitamin D,25 Hydroxy 61.2 ng/mL
== END | disposition home or self-care (01) ==
PROVIDERS: PCP Family Medicine Geriatric Medicine; Referring Provider Family Medicine Geriatric Medicine; Visit Provider Family Medicine Geriatric Medicine
DX: I10 Essential (primary) hypertension (principal); E55.9 Vitamin D deficiency, unspecified; E78.5 Hyperlipidemia, unspecified
CPT/HCPCS: 36415; 80053; 80061; 82306; 84443; 85025

== ENCOUNTER → 2024-02-06 | Outpatient (CLI) | payer MEDICARE, SELFPAY ==
[2024-02-06 09:24] LABS: Absolute Lymphocyte Count 1.41 X10^3/uL (0.83-4.51); Absolute Neutrophil Count 1.8 X10^3/uL (2.0-7.7); Basophil# 0.01 X10^3/uL; Basophil% 0.3 % (0-1); Eosinophil# 0.06 X10^3/uL; Eosinophils% 1.7 % (0-5); Hematocrit 37.6 % (37-47); Hemoglobin 12.3 g/dL (12.0-15.0); Lymphocyte # 1.41 X10^3/ul (0.83-4.51); Lymphocyte % 39.4 % (19-41); Mean Corp Hgb Conc 32.7 g/dL (32-36); Mean Corpuscular Hgb 29.9 pg (27.0-32.0); Mean Corpuscular Volume 91.3 fL (81-99); Mean Platelet Vol. 10.3 fl (6.2-12.0); Monocyte% 8.4 % (0-10); NRBC Flagged by Analyzer 0 % (0-5); Neutrophil # 1.79 X10^3/uL (2.7-7.7); Neutrophil % 49.9 % (47-70); POSITIVE MORPHOLOGY YES; Platelet Count 157 K/mm3 (150-450); RBC Distribution Width CV 12.1 % (11.6-14.6); RBC Distribution Width SD 40.8 fl (35.1-43.9); Red Blood Count 4.12 M/mm3 (4.2-5.4); White Blood Count 3.6 K/mm3 (4.4-11.0)
[2024-02-06 09:26] LABS: Differential Indicated SCAN CRITERIA MET
[2024-02-06 09:47] LABS: Vitamin D,25 Hydroxy 58.1 ng/mL
[2024-02-06 09:51] LABS: ALB/GLOB Ratio 1.1 RATIO (0.9-2.4); AST(SGOT) 29 U/L (15-37); Alanine Aminotransfer ALT/SGPT 27 U/L (13-56); Albumin, Serum 3.7 g/dL (3.2-5.0); Alkaline Phosphatase 67 U/L (45-117); Anion Gap 6 (5-15); BUN 12 mg/dL (7-18); BUN/Creat Ratio 14.5 RATIO (10-20); Calcium,Total 9.4 mg/dL (8.5-10.1); Chloride 102 mmol/L (98-107); Cholesterol 169 mg/dL (200); Creatinine, Serum 0.83 mg/dL (0.55-1.02); EST Glomerular Filtration Rate 71 mL/min (>60); Est Glom Filt Rate - Afr Amer 86 mL/min (>60); Globulin 3.5 g/dL (2.2-4.2); Glucose 112 mg/dL (74-106); High Density Lipoprotein 57 mg/dL; Potassium 3.7 mmol/L (3.5-5.1); Protein, Total 7.2 g/dL (6.4-8.2); Sodium Level 137 mmol/L (136-145); Triglycerides 73 mg/dL; Very Low Density Lipoprotein 15 mg/dL (5-40)
[2024-02-06 09:58] LABS: Atypical Lymphocyte RARE %; Differential Comment SCANNED
== END | disposition home or self-care (01) ==
LOC: POLAB3 08:58
PROVIDERS: PCP Family Medicine Geriatric Medicine; Visit Provider Family Medicine Geriatric Medicine
DX: I10 Essential (primary) hypertension (principal); E55.9 Vitamin D deficiency, unspecified; E78.5 Hyperlipidemia, unspecified
CPT/HCPCS: 36415; 80053; 80061; 82306; 84443; 85025

== ENCOUNTER → 2024-08-12 | Outpatient (CLI) | payer MEDICARE, SELFPAY ==
[2024-08-12 10:08] LABS: Absolute Lymphocyte Count 1.65 X10^3/uL (0.83-4.51); Absolute Neutrophil Count 4.1 X10^3/uL (2.0-7.7); Basophil# 0.06 X10^3/uL; Basophil% 0.9 % (0-1); Eosinophil# 0.24 X10^3/uL; Eosinophils% 3.7 % (0-5); Hematocrit 36.6 % (37-47); Hemoglobin 12.6 g/dL (12.0-15.0); Lymphocyte # 1.65 X10^3/ul (0.83-4.51); Lymphocyte % 25.2 % (19-41); Mean Corp Hgb Conc 34.4 g/dL (32-36); Mean Corpuscular Hgb 31.3 pg (27.0-32.0); Mean Corpuscular Volume 90.8 fL (81-99); Mean Platelet Vol. 9.5 fl (6.2-12.0); Monocyte# 0.45 X10^3/uL; Monocyte% 6.9 % (0-10); NRBC Flagged by Analyzer 0 % (0-5); Neutrophil # 4.14 X10^3/uL (2.7-7.7); Platelet Count 253 K/mm3 (150-450); RBC Distribution Width SD 40.1 fl (35.1-43.9); Red Blood Count 4.03 M/mm3 (4.2-5.4); White Blood Count 6.6 K/mm3 (4.4-11.0)
[2024-08-12 13:27] LABS: ALB/GLOB Ratio 1.7 RATIO (0.9-2.4); AST(SGOT) 22 U/L (<=31); Alanine Aminotransfer ALT/SGPT 18 U/L (<=34); Albumin, Serum 4.6 g/dL (3.4-4.8); Alkaline Phosphatase 62 U/L (35-104); Anion Gap 10 (5-15); BUN 14 mg/dL (4-19); BUN/Creat Ratio 17.6 RATIO (10-20); Calcium,Total 10.3 mg/dL (7.6-11.0); Carbon Dioxide 28.6 mmol/L (21.0-32.0); Chloride 96 mmol/L (98-108); Cholesterol 201 mg/dL (<=200); EST Glomerular Filtration Rate 77 (>60); Globulin 2.8 g/dL (2.2-4.2); Glucose 105 mg/dL (70-99); High Density Lipoprotein 70 mg/dL; Low Density Lipoprotein Calc. 119 mg/dL; Potassium 3.7 mmol/L (3.3-5.1); Protein, Total 7.4 g/dL (5.9-8.4); Sodium Level 135 mmol/L (133-145); Triglycerides 61 mg/dL; Very Low Density Lipoprotein 12 mg/dL (5-40); Vitamin D,25 Hydroxy 46.3 ng/mL (30-100); cholesterol:hdl ratio screen 2.87
== END | disposition home or self-care (01) ==
LOC: LAB 09:24
PROVIDERS: PCP Family Medicine Geriatric Medicine; Referring Provider Family Medicine Geriatric Medicine; Visit Provider Family Medicine Geriatric Medicine
DX: I10 Essential (primary) hypertension (principal); E55.9 Vitamin D deficiency, unspecified; E78.5 Hyperlipidemia, unspecified
CPT/HCPCS: 36415; 80053; 80061; 82306; 84443; 85025

== ENCOUNTER → 2025-02-08 | Outpatient (CLI) | payer MEDICARE, SELFPAY ==
[2025-02-08 09:34] LABS: Hematocrit 37.8 % (37-47); Hemoglobin 12.5 g/dL (12.0-15.0); Immature Granulocytes Count 0.030 X10^3/uL (0.0-0.0); Mean Corp Hgb Conc 33.1 g/dL (32-36); Mean Corpuscular Volume 92.4 fL (81-99); Mean Platelet Vol. 9.7 fl (6.2-12.0); NRBC Flagged by Analyzer 0 % (0-5); Platelet Count 275 K/mm3 (150-450); RBC Distribution Width CV 11.9 % (11.6-14.6); RBC Distribution Width SD 40.2 fl (35.1-43.9); Red Blood Count 4.09 M/mm3 (4.2-5.4); White Blood Count 7.4 K/mm3 (4.4-11.0)
[2025-02-08 10:12] LABS: AST(SGOT) 23 U/L (<=31); Alanine Aminotransfer ALT/SGPT 17 U/L (<=34); Albumin, Serum 4.4 g/dL (3.4-4.8); Alkaline Phosphatase 63 U/L (35-104); Anion Gap 9 (5-15); BUN 16 mg/dL (4-19); BUN/Creat Ratio 22.5 RATIO (10-20); Calcium,Total 10.0 mg/dL (7.6-11.0); Carbon Dioxide 28.0 mmol/L (21.0-32.0); Chloride 100 mmol/L (98-108); Cholesterol 202 mg/dL (<=200); Globulin 2.8 g/dL (2.2-4.2); Glucose 115 mg/dL (70-99); Low Density Lipoprotein Calc. 122 mg/dL; Potassium 3.9 mmol/L (3.3-5.1); Triglycerides 86 mg/dL; Very Low Density Lipoprotein 17 mg/dL (5-40); cholesterol:hdl ratio screen 3.15
[2025-02-08 10:45] LABS: Vitamin D,25 Hydroxy 43.6 ng/mL (30-100)
[2025-02-08 17:23] LABS: Xtra Tube Kwok EXTRA TUBE
== END | disposition home or self-care (01) ==
LOC: POLAB3 09:23
PROVIDERS: PCP Family Medicine Geriatric Medicine; Visit Provider Family Medicine Geriatric Medicine
DX: I10 Essential (primary) hypertension (principal); E55.9 Vitamin D deficiency, unspecified; E78.5 Hyperlipidemia, unspecified
CPT/HCPCS: 36415; 80053; 80061; 82306; 84443; 85025